=== PATIENT | male | born 1955 | race Caucasian/White ===

== ENCOUNTER 2020-05-16 19:38 | Inpatient (IN) | payer SELFPAY ==
[~2020-05-16] VITALS: Ht 188 cm; Wt 104.0 kg
[2020-05-16] MEDS ORDERED: dilTIAZem DRIP PRE-MIX 125 ML IV SCH (20:00)
[2020-05-16 20:05] LABS: BASOPHILS % (AUTO) 1 % (0-10); EOSINOPHILS % (AUTO) 0 % (0-10); HEMATOCRIT 50 % (40-54); HEMOGLOBIN 17.8 g/dL (13.3-17.7); LYMPHOCYTES # (AUTO) 1.7 10^3/uL (1.0-4.0); LYMPHOCYTES % (AUTO) 29 % (12-44); MEAN CORPUSCULAR HEMOGLOBIN 33 pg (25-34); MEAN CORPUSCULAR HGB CONC 36 g/dL (32-36); MEAN CORPUSCULAR VOLUME 92 fL (80-99); MEAN PLATELET VOLUME 9.9 fL (9.0-12.2); MONOCYTES # (AUTO) 1.9 10^3/uL (0.0-1.0); MONOCYTES % (AUTO) 33 % (0-12); NEUTROPHILS # (AUTO) 2.2 10^3/uL (1.8-7.8); NEUTROPHILS % (AUTO) 37 % (42-75); PLATELET COUNT 203 10^3/uL (130-400)
[2020-05-16 20:19] LABS: ALANINE AMINOTRANSFERASE 65 U/L (0-55); ALBUMIN 4.4 GM/DL (3.2-4.5); ALKALINE PHOSPHATASE 52 U/L (40-136); BILIRUBIN,TOTAL 0.7 MG/DL (0.1-1.0); BUN/CREATININE RATIO 14; CALCIUM 8.8 MG/DL (8.5-10.1); CARBON DIOXIDE 18 MMOL/L (21-32); CHLORIDE 104 MMOL/L (98-107); CREATININE SERUM 0.99 MG/DL (0.60-1.30); GFR ESTIMATED > 60; GLUCOSE 118 MG/DL (70-105); MAGNESIUM 2.3 MG/DL (1.6-2.4); SODIUM 136 MMOL/L (135-145); TOTAL PROTEIN 8.2 GM/DL (6.4-8.2)
[2020-05-16 20:24] LABS: PROTHROMBIN TIME PATIENT 13.3 SEC (12.2-14.7)
[2020-05-16 20:28] LABS: LYMPHOCYTES % (MANUAL) 24 %; MONOCYTES % (MANUAL) 31 %; NEUTROPHILS % (MANUAL) 45 %; RBC MORPH NORMAL
--- NOTE | 2020-05-16 20:37 | Diagnostic Imaging Report ---
EXAMINATION: Chest radiograph, portable AP view. DATE: 05/16/2020 8:27 PM INDICATION: 65-year-old male, chest pain. COMPARISON: None. FINDINGS: Heart size and mediastinal contours are unremarkable. There is no identified pneumothorax. Streaky opacities in both lung bases. IMPRESSION: Streaky opacities in both lung bases which may relate to atelectasis and/or infiltrate. Dictated by: Dictated on workstation # [id number]
[2020-05-16 20:40] LABS: TSH (THYROID ANALYZER) 1.17 UIU/ML (0.35-4.94)
[2020-05-16 20:46] LABS: AMPHETAMINE SCREEN, URINE NEGATIVE (NEGATIVE); BARBITURATE SCREEN URINE NEGATIVE (NEGATIVE); BENZODIAZEPINES SCREEN URINE NEGATIVE (NEGATIVE); CANNABINOID SCREEN, URINE NEGATIVE (NEGATIVE); COCAINE SCREEN URINE NEGATIVE (NEGATIVE); METHADONE STAT NEGATIVE (NEGATIVE); METHAMPHETAMINE SCREEN URINE S NEGATIVE (NEGATIVE); OPIATE SCREEN URINE NEGATIVE (NEGATIVE); OXYCODONE STAT NEGATIVE (NEGATIVE); PROPOXYPHENE STAT NEGATIVE (NEGATIVE); TRICYCLIC ANTIDEPRESSANTS SCRE NEGATIVE (NEGATIVE)
--- NOTE | 2020-05-16 22:09 | ED Cardiac General ---
History of Present Illness General Chief Complaint: Cardiac/General Problems Stated Complaint: POSS HEART ISSUES / CHEST TIGHTNESS Nursing Triage Note: Pt ambulatory into ER with complaint of heart racing or as he describes it as a fast murmur. Pt also says that his blood pressure is probably high. Pt states that he was gonna go to the clinic but they never find anything wrong with him so he came here. Pt denies chest pain, shortness of breath, n/v/d. Source: patient Exam Limitations: no limitations History of Present Illness Date Seen by Provider: May 16, 2020 Time Seen by Provider: 19:55 Initial Comments This 65-year-old gentleman presents to the emergency room with complaints of palpitations. He denies any chest pain or shortness of breath. He has had similar episodes in the past that were self-limited and sometimes lasted up to several hours. He appears to be in atrial fibrillation or atrial flutter with RVR on the monitor, but he denies any diagnosed history of arrhythmias. He does not have a primary care provider. He seems to be perseverating about a variety of issues including the possibility of dietary impacts causing his condition. It is difficult to keep him focused on the topic at hand. Patient has some bruising and an abrasion around his navel where he also has an umbilical hernia. He reports this occurred when a almond grinder broke and struck him in the belly 2 or 3 days ago. Allergies and Home Medications Allergies Coded Allergies: No Known Drug Allergies (Unverified , 05/16/20) Patient Home Medication List Home Medication List Reviewed: Yes Review of Systems Review of Systems Constitutional: no symptoms reported EENTM: No Symptoms Reported Respiratory: No Symptoms Reported Cardiovascular: See HPI Gastrointestinal: No Symptoms Reported Genitourinary: No Symptoms Reported Musculoskeletal: no symptoms reported Skin: see HPI, other (Bruising and abrasion around the navel) Psychiatric/Neurological: No Symptoms Reported Endocrine: No Symptoms Reported Past Icaec[facility]-Pnw[facility]x Hx Past Med/Social Hx: Reviewed Nursing Past Med/Soc Hx Patient Social History Recent Infectious Disease Expo: No Recent Hopitalizations: No Seasonal Allergies Seasonal Allergies: No Past Medical History Surgeries: No Respiratory: No Cardiac: No Neurological: No Genitourinary: No Gastrointestinal: Yes (Umbilical hernia) Musculoskeletal: No Endocrine: No HEENT: Yes (Strabismus) Glaucoma Cancer: No Psychosocial: No Integumentary: No Blood Disorders: No Adverse Reaction/Blood Tranf: No Physical Exam Vital Signs Vital Signs - First Documented 05/16/20 05/16/20 19:44 20:02 Temp 36.8 Pulse 126 Resp 20 B/P (MAP) 163/151 (155) Pulse Ox 95 O2 Delivery Nasal Cannula O2 Flow Rate 2.00 Capillary Refill : Less Than 3 Seconds Height, Weight, BMI Height: '" Weight: lbs. oz. kg; 28.00 BMI Method: General Appearance: No Apparent Distress, WD/WN HEENT: PERRL/EOMI, Normal ENT Inspection Neck: Normal Inspection; No JVD Respiratory: Lungs Clear, Normal Breath Sounds, No Accessory Muscle Use, No Respiratory Distress Cardiovascular: No Edema, No Murmur, Irregularly Irregular Gastrointestinal: Normal Bowel Sounds, Non Tender, Soft, Other (Small umbilical hernia with nearby ecchymosis and abrasion) Extremity: Normal Inspection, No Pedal Edema Neurologic/Psychiatric: Alert, Oriented x3, No Motor/Sensory Deficits, Normal Mood/Affect, network engineer II-XII Norm as Tested, Other (Various perseverations, paranoias, and scattered thoughts) Skin: Normal Color, Warm/Dry Progress/Results/Core Measures Results/Orders Lab Results Laboratory Tests Test 05/16/20 19:50 05/16/20 20:28 Range/Units White Blood Count 6.0 4.3-11.0 10^3/uL Red Blood Count 5.45 4.30-5.52 10^6/uL Hemoglobin 17.8 H 13.3-17.7 g/dL Hematocrit 50 40-54 % Mean Corpuscular Volume 92 80-99 fL Mean Corpuscular Hemoglobin 33 25-34 pg Mean Corpuscular Hemoglobin Concent 36 32-36 g/dL Red Cell Distribution Width 11.9 10.0-14.5 % Platelet Count 203 130-400 10^3/uL Mean Platelet Volume 9.9 9.0-12.2 fL Immature Granulocyte % (Auto) 0 % Neutrophils (%) (Auto) 37 L 42-75 % Lymphocytes (%) (Auto) 29 12-44 % Monocytes (%) (Auto) 33 H 0-12 % Eosinophils (%) (Auto) 0 0-10 % Basophils (%) (Auto) 1 0-10 % Neutrophils # (Auto) 2.2 1.8-7.8 10^3/uL Lymphocytes # (Auto) 1.7 1.0-4.0 10^3/uL Monocytes # (Auto) 1.9 H 0.0-1.0 10^3/uL Eosinophils # (Auto) 0.0 0.0-0.3 10^3/uL Basophils # (Auto) 0.0 0.0-0.1 10^3/uL Immature Granulocyte # (Auto) 0.0 0.0-0.1 10^3/uL Neutrophils % (Manual) 45 % Lymphocytes % (Manual) 24 % Monocytes % (Manual) 31 % Blood Morphology Comment NORMAL Prothrombin Time 13.3 12.2-14.7 SEC INR Comment 1.0 0.8-1.4 Activated Partial Thromboplast Time 30 24-35 SEC D-Dimer 0.28 0.00-0.49 UG/ML Sodium Level 136 135-145 MMOL/L Potassium Level 4.0 3.6-5.0 MMOL/L Chloride Level 104 98-107 MMOL/L Carbon Dioxide Level 18 L 21-32 MMOL/L Anion Gap 14 5-14 MMOL/L Blood Urea Nitrogen 14 7-18 MG/DL Creatinine 0.99 0.60-1.30 MG/DL Estimat Glomerular Filtration Rate > 60 BUN/Creatinine Ratio 14 Glucose Level 118 H 70-105 MG/DL Calcium Level 8.8 8.5-10.1 MG/DL Corrected Calcium 8.5 8.5-10.1 MG/DL Magnesium Level 2.3 1.6-2.4 MG/DL Total Bilirubin 0.7 0.1-1.0 MG/DL Aspartate Amino Transf (AST/SGOT) 54 H 5-34 U/L Alanine Aminotransferase (ALT/SGPT) 65 H 0-55 U/L Alkaline Phosphatase 52 40-136 U/L Myoglobin 86.2 10.0-92.0 NG/ML Troponin I < 0.028 <0.028 NG/ML C-Reactive Protein High Sensitivity 1.41 H 0.00-0.50 MG/DL Total Protein 8.2 6.4-8.2 GM/DL Albumin 4.4 3.2-4.5 GM/DL TSH [place] Testing 1.17 0.35-4.94 UIU/ML Serum Alcohol < 10 <10 MG/DL Urine Opiates Screen NEGATIVE NEGATIVE Urine Oxycodone Screen NEGATIVE NEGATIVE Urine Methadone Screen NEGATIVE NEGATIVE Urine Propoxyphene Screen NEGATIVE NEGATIVE Urine Barbiturates Screen NEGATIVE NEGATIVE Ur Tricyclic Antidepressants Screen NEGATIVE NEGATIVE Urine Phencyclidine Screen NEGATIVE NEGATIVE Urine Amphetamines Screen NEGATIVE NEGATIVE Urine Methamphetamines Screen NEGATIVE NEGATIVE Urine Benzodiazepines Screen NEGATIVE NEGATIVE Urine Cocaine Screen NEGATIVE NEGATIVE Urine Cannabinoids Screen NEGATIVE NEGATIVE My Orders Orders - JIE PINEDO MD Cbc With Automated Diff (05/16/20 19:57) Magnesium (05/16/20 19:57) Chest 1 View, Ap/Pa Only (05/16/20 19:57) Ekg Tracing (05/16/20 19:57) Comprehensive Metabolic Panel (05/16/20:57) Myoglobin Serum (05/16/20:57) Protime With Inr (05/16/20:57) Partial Thromboplastin Time (05/16/20 19:57) O2 (05/16/20 19:57) Monitor-Rhythm Ecg Trace Only (05/16/20 19:57) Lipid Panel (05/17/20 06:00) Ed Iv/Invasive Line Start (05/16/20 19:57) Troponin I (05/16/20 19:57) Thyroid Analyzer (05/16/20 19:57) Diltiazem Injection (Cardizem Injection) (05/16/20 20:00) Diltiazem Drip Pre-Mix (Cardizem Drip Pr (05/16/20 20:00) Alcohol (05/16/20 19:59) Drug Screen Stat (Urine) (05/16/20 19:59) Manual Differential (05/16/20 19:50) Hs C Reactive Protein (05/16/20 21:40) Apixaban Tablet (Eliquis Tablet) (05/16/20 22:15) Covid 19 Inhouse Test (05/16/20 22:02) Medications Given in ED Current Medications Medications Dose Ordered Sig/Leopoldo Route Start Time Stop Time Status Last Admin Dose Admin Diltiazem HCl 10 mg ONCE ONCE IVP 05/16/20 20:00 05/16/20 20:01 DC 05/16/20 20:10 10 MG Vital Signs/I&O 05/16/20 05/16/20 19:44 20:02 Temp 36.8 Pulse 126 Resp 20 B/P (MAP) 163/151 (155) Pulse Ox 95 94 O2 Delivery Nasal Cannula O2 Flow Rate 2.00 Blood Pressure Mean: 155 Progress Progress Note : Progress Note Patient was found to have A. fib Or atrial flutter with RVR. He was started on a Cardizem drip which did drop his heart rate down into the 90s.Atelectasis vers us basilar infiltrate was noted on chest x-ray and nursing staff noted he did have some mild oxygen desaturations with exertion. Patient later stated that he had had a headache and some cold symptoms 2 days ago. Rapid Covid test was performed and returned positive for COVID-19. Dexamethasone was administered. Initial ECG Impression Date: May 16, 2020 Initial ECG Impression Time: 19:48 Initial ECG Rate: 131 Comment Probable atrial flutter with RVR. No ST elevation or depression to suggest ischemia. Diagnostic Imaging Diagonstic Imaging: Xray Plain Films/CT/US/NM/MRI: chest Comments Chest x-ray viewed by me and report reviewed. See report below: NAME: HARSH MITCHELL [facility] REC#: [id number] PT STATUS: REG ER : 1955 PHYSICIAN: JIE PINEDO MD ADMIT DATE: 05/16/20/ER Signed Date of Exam:05/16/20 CHEST 1 VIEW, AP/PA ONLY EXAMINATION: Chest radiograph, portable AP view. DATE: 05/16/2020 8:27 PM INDICATION: 65-year-old male, chest pain. COMPARISON: None. FINDINGS: Heart size and mediastinal contours are unremarkable. There is no identified pneumothorax. Streaky opacities in both lung bases. IMPRESSION: Streaky opacities in both lung bases which may relate to atelectasis and/or infiltrate. Dictated by: Dictated on workstation # [id number] Dict: 05/16/202029 Trans: 05/16/202201 [facility] [id number] Interpreted by: KEN BURCIAGA MD Electronically signed by: KEN BURCIAGA MD 05/16/202201 Departure Communication (Admissions) Time/Spoke to Admitting Phy: 22:00 Dr. Grant Time/Spoke to Consulting Phy: 21:50 Dr. Shea Impression Primary Impression: Atrial flutter with rapid ventricular response Additional Impression: COVID-19 Disposition: 09 ADMITTED INPATIENT Condition: Improved Admissions Decision to Admit Reason: Admit from ER (General) Decision to Admit/Date: May 16, 2020 Time/Decision to Admit Time: 19:50 Departure-Patient Inst. Referrals: NO,LOCAL PHYSICIAN (PCP/Family) Primary Care Physician JIE PINEDO MD May 16, 2020 22:09
[2020-05-16] MEDS ORDERED: APIXABAN 5 MG (ELIQUIS) TABLET PO ONE (22:15)
[2020-05-17 00:42] VITALS: BP 148/109
[2020-05-17] MEDS ORDERED: CATHETER FLUSH 10 ML SYR IV PRN (01:15)
[2020-05-17] MEDS: dilTIAZem DRIP PRE-MIX 125 ML IV SCH ×2 (01:20→04:54)
[2020-05-17 05:08] LABS: BASOPHILS % (AUTO) 0 % (0-10); EOSINOPHILS % (AUTO) 0 % (0-10); HEMATOCRIT 55 % (40-54); HEMOGLOBIN 19.5 g/dL (13.3-17.7); LYMPHOCYTES # (AUTO) 0.7 10^3/uL (1.0-4.0); LYMPHOCYTES % (AUTO) 13 % (12-44); MEAN CORPUSCULAR HEMOGLOBIN 32 pg (25-34); MEAN CORPUSCULAR HGB CONC 35 g/dL (32-36); MEAN CORPUSCULAR VOLUME 92 fL (80-99); MEAN PLATELET VOLUME 10.2 fL (9.0-12.2); MONOCYTES # (AUTO) 0.5 10^3/uL (0.0-1.0); MONOCYTES % (AUTO) 8 % (0-12); NEUTROPHILS # (AUTO) 4.6 10^3/uL (1.8-7.8); NEUTROPHILS % (AUTO) 79 % (42-75); PLATELET COUNT 226 10^3/uL (130-400); WHITE BLOOD COUNT 5.8 10^3/uL (4.3-11.0)
[2020-05-17 05:34] LABS: BUN/CREATININE RATIO 12; CALCIUM 9.4 MG/DL (8.5-10.1); CARBON DIOXIDE 18 MMOL/L (21-32); CHLORIDE 103 MMOL/L (98-107); CREATININE SERUM 1.09 MG/DL (0.60-1.30); GFR ESTIMATED > 60; GLUCOSE 195 MG/DL (70-105); MAGNESIUM 2.2 MG/DL (1.6-2.4); PHOSPHORUS 2.2 MG/DL (2.3-4.7); POTASSIUM 3.7 MMOL/L (3.6-5.0); SODIUM 136 MMOL/L (135-145)
[2020-05-17 05:35] LABS: CHOLESTEROL 162 MG/DL (< 200); HDL CHOLESTEROL 43 MG/DL (40-60); TRIGLYCERIDES 93 MG/DL (<150); VLDL CHOLESTEROL 19 MG/DL (5-40)
[2020-05-17] MEDS ORDERED: KCL 20 MEQ TAB (K-DUR) PO SCH (06:00)
[2020-05-17] MEDS ORDERED: CATHETER FLUSH 10 ML SYR IV SCH (06:00)
[2020-05-17] MEDS ORDERED: POTASSIUM CL 10MEQ/50ML IVPB 50 ML IV SCH (06:00)
[2020-05-17] MEDS ORDERED: MAGNESIUM 1 GM/100 ML IVPB 100 ML IV SCH (06:00)
[2020-05-17] MEDS ORDERED: APIXABAN 5 MG (ELIQUIS) TABLET PO SCH (09:00)
[2020-05-17] MEDS ORDERED: APIX5TAB PO (10:43)
[2020-05-17] MEDS ORDERED: DILT240C91 PO (10:43)
--- NOTE | 2020-05-17 10:50 | Discharge Summary ---
Discharge Summary Hospital Course Was the Problem List Reviewed?: Yes Problems/Dx: (1) Atrial flutter with rapid ventricular response Status: Acute (2) COVID-19 Status: Acute Hospital Course Date of Admission: May 16, 2020 at 22:05 Admission Diagnosis : Atrial fibrillation with rapid ventricular response Family Physician/Provider: No,Local Physician Date of Discharge: 05/17/20 Discharge Diagnosis: Atrial fibrillation with rapid ventricular response Hospital Course: Zain Mahan is a 65-year-old male who presented with palpitations and was admitted with atrial fibrillation with rapid ventricular response. He was started on IV Cardizem and was able to be transitioned to oral Cardizem once his rates were well controlled. He was started on Eliquis for stroke prophylaxis. His course was complicated by COVID-19. He was relatively asymptomatic from this. His symptoms started on Thursday, 05/14 and he will need to isolate for 10 days. He needs to establish care with a primary care physician and plans to go to the [facility]. He also needs to follow-up with cardiology. He was discharged home in stable condition. Labs and Pending Lab Test: Laboratory Tests 05/16/20 19:50: White Blood Count 6.0, Red Blood Count 5.45, Hemoglobin 17.8H, Hematocrit 50, Mean Corpuscular Volume 92, Mean Corpuscular Hemoglobin 33, Mean Corpuscular Hemoglobin Concent 36, Red Cell Distribution Width 11.9, Platelet Count 203, Mean Platelet Volume 9.9, Immature Granulocyte % (Auto) 0, Neutrophils (%) (Auto) 37L, Lymphocytes (%) (Auto) 29, Monocytes (%) (Auto) 33H, Eosinophils (%) (Auto) 0, Basophils (%) (Auto) 1, Neutrophils # (Auto) 2.2, Lymphocytes # (Auto) 1.7, Monocytes # (Auto) 1.9H, Eosinophils # (Auto) 0.0, Basophils # (Auto) 0.0, Immature Granulocyte # (Auto) 0.0, Neutrophils % (Manual) 45, Lymphocytes % (Manual) 24, Monocytes % (Manual) 31, Blood Morphology Comment NORMAL, Prothrombin Time 13.3, INR Comment 1.0, Activated Partial Thromboplast Time 30, D-Dimer 0.28, Sodium Level 136, Potassium Level 4.0, Chloride Level 104, Carbon Dioxide Level 18L, Anion Gap 14, Blood Urea Nitrogen 14, Creatinine 0.99, Estimat Glomerular Filtration Rate > 60, BUN/Creatinine Ratio 14, Glucose Level 118H, Calcium Level 8.8, Corrected Calcium 8.5, Magnesium Level 2.3, Total Bilirubin 0.7, Aspartate Amino Transf (AST/SGOT) 54H, Alanine Aminotransferase (ALT/SGPT) 65H, Alkaline Phosphatase 52, Myoglobin 86.2, Troponin I < 0.028, C- Reactive Protein High Sensitivity 1.41H, Total Protein 8.2, Albumin 4.4, TSH [place] Testing 1.17, Serum Alcohol < 10 05/16/20 20:28: Urine Opiates Screen NEGATIVE, Urine Oxycodone Screen NEGATIVE, Urine Methadone Screen NEGATIVE, Urine Propoxyphene Screen NEGATIVE, Urine Barbiturates Screen NEGATIVE, Ur Tricyclic Antidepressants Screen NEGATIVE, Urine Phencyclidine Screen NEGATIVE, Urine Amphetamines Screen NEGATIVE, Urine Methamphetamines Screen NEGATIVE, Urine Benzodiazepines Screen NEGATIVE, Urine Cocaine Screen NEGATIVE, Urine Cannabinoids Screen NEGATIVE 05/16/20 22:15: Coronavirus 2019 (LETICIA) PositiveH 05/17/20 04:50: White Blood Count 5.8, Red Blood Count 6.03H, Hemoglobin 19.5H, Hematocrit 55H, Mean Corpuscular Volume 92, Mean Corpuscular Hemoglobin 32, Mean Corpuscular Hemoglobin Concent 35, Red Cell Distribution Width 11.8, Platelet Count 226, Mean Platelet Volume 10.2, Immature Granulocyte % (Auto) 0, Neutrophils (%) (Auto) 79H, Lymphocytes (%) (Auto) 13, Monocytes (%) (Auto) 8, Eosinophils (%) (Auto) 0, Basophils (%) (Auto) 0, Neutrophils # (Auto) 4.6, Lymphocytes # (Auto) 0.7L, Monocytes # (Auto) 0.5, Eosinophils # (Auto) 0.0, Basophils # (Auto) 0.0, Immature Granulocyte # (Auto) 0.0, Sodium Level 136, Potassium Level 3.7, Chloride Level 103, Carbon Dioxide Level 18L, Anion Gap 15H, Blood Urea Nitrogen 13, Creatinine 1.09, Estimat Glomerular Filtration Rate > 60, BUN/Creatinine Ratio 12, Glucose Level 195H, Calcium Level 9.4, Magnesium Level 2.2, Phosphorus Level 2.2L, Triglycerides Level 93, Cholesterol Level 162, LDL Cholesterol Direc t 111, VLDL Cholesterol 19, HDL Cholesterol 43 05/17/20 04:52: Mean Blood Glucose [Pending], Hemoglobin A1c [Pending] Home Meds Active Assessment/Pt Instructions Take medications as prescribed. You are being started on Cardizem and Eliquis for atrial fibrillation. You were also diagnosed with COVID-19. You will need to isolate for 6 more days. You need to establish care with a primary care physician. You should follow up with cardiology. Return with worsening palpitations, chest pain, shortness of breath, or if you feel like you are getting worse. Discharge Planning: <30 minutes discharge planning Discharge Instructions Discharge Diet: No Restrictions Activity as Tolerated: Yes Discharge Physical Examination Vital Signs Vital Signs Date Time Temp Pulse Resp B/P (MAP) Pulse Ox O2 Delivery O2 Flow Rate FiO2 05/17/20 10:00 154/98 (116) 97 Room Air 05/17/20 09:00 77 23 05/17/20 08:59 0.50 05/17/20 08:19 37.6 General Appearance: No Apparent Distress, Obese HEENT: PERRL/EOMI, Pharynx Normal Respiratory: Lungs Clear, Normal Breath Sounds, No Respiratory Distress Cardiovascular: No Edema, No Murmur, Irregularly Irregular Gastrointestinal: Normal Bowel Sounds, Non Tender, Soft Extremity: Normal Inspection, Non Tender, No Pedal Edema Skin: Normal Color, Warm/Dry Neurologic/Psychiatric: Alert, Oriented x3, No Motor/Sensory Deficits Allergies: Coded Allergies: No Known Drug Allergies (Unverified , 05/16/20) Copy Copies To 1: [facility] [place] Date of Admission May 16, 2020 at 22:05 Date of Discharge Discharge Date: May 17, 2020 Discharge Time: 10:46 Admission Diagnosis Atrial fibrillation with rapid ventricular response Consults/Procedures Consulations Cardiology Discharge Diagnosis (1) Atrial flutter with rapid ventricular response Status: Acute (2) COVID-19 Status: Acute MELIZA FONSECA MD May 17, 2020 10:50
--- NOTE | 2020-05-17 17:27 | Consultation-Cardiology ---
HPI-Cardiology Cardiology Consultation: Date of Consultation 05/17/20 Time Seen by a Provider: 08:30 Date of Admission Attending Physician Agustina Grant DO Admitting Physician No,Local Physician Consulting Physician ANABELL PIMENTEL MD, MA, FACP, FACC, FSCAI, CCDS HPI: Chief Complaint: CC: Palpitations HPI 65 yo man admitted to Dr Fonseca service on 05-16-20 with palpitations. Found to have A Fl with RVR. We were asked to see him in cardiac consult. He does not report any cp or syncope or shortness of breath. Has had intermittent feeling of palpitations for several months. Denies fever or chills. Denies sore throat or runny nose or malaise. Found to be COVID positive at the time of this admission. Notes many medication intolerances but unable to name any specific meds. Drifts away from the questions during the interview. Wants to go home today. Does not wish to stay in the hospital. Review of Systems-Cardiology Review of Systems Constitutional: malaise, tiredness; No weight loss, No weight gain Eyes: No vision change Ears/Nose/Throat: No ear discharge, No nasal drainage, No recent hearing loss Respiratory: As described under HPI Cardiovascular: As described under HPI Gastrointestinal: No diarrhea, No nausea, No vomiting Genitourinary: No dysuria, No hematuria, No urine frequency changes Musculoskeletal: No back pain, No joint pain Skin: No rash on exposed areas, No ulcerations on exposed areas Psychiatric/Neurological: No seizure, No focal weakness, No syncope Hematologic: No bleeding abnormalities KEN-Wcpdhj-Dpldif Hx Patient Social History Smoking Status: Never a Smoker Past Medical History PMH As described under Assessment. Family Medical History Family Medical History: he does not report fam h/o early CAD Allergies and Home Medications Allergies Coded Allergies: No Known Drug Allergies (Unverified , 05/16/20) Home Medications Apixaban 5 Mg Tablet, 5 MG PO BID Prescribed by: MELIZA FONSECA on 05/17/20 1043 Diltiazem HCl 240 Mg Cap.er.24h, 240 MG PO DAILY Prescribed by: MELIZA FONSECA on 05/17/20 1043 Patient Home Medication List Home Medication List Reviewed: Yes Physical Exam-Cardiology Physical Exam Vital Signs/I&O 05/17/20 05/17/20 05/17/20 05/17/20 06:00 06:47 07:00 08:00 Pulse 82 76 67 Resp 15 14 B/P (MAP) 127/80 (96) 126/93 (104) Pulse Ox 95 96 96 O2 Delivery Nasal Cannula Nasal Cannula Nasal Cannula O2 Flow Rate 2.00 2.00 2.00 05/17/20 05/17/20 05/17/20 05/17/20 08:00 08:19 08:59 09:00 Temp 37.6 Pulse 48 77 Resp 10 23 B/P (MAP) 138/90 (106) 166/94 (118) Pulse Ox 96 96 97 O2 Delivery Nasal Cannula Nasal Cannula Room Air O2 Flow Rate 2.00 0.50 05/17/20 05/17/20 05/17/20 05/17/20 09:00 10:00 11:00 12:00 Pulse 92 Resp 18 B/P (MAP) 154/98 (116) 161/118 (132) Pulse Ox 97 96 96 O2 Delivery Room Air Room Air Room Air Room Air 05/17/20 05/17/20 12:00 12:34 Pulse 99 99 Resp 15 B/P (MAP) 152/117 (129) Pulse Ox 96 O2 Delivery Room Air Capillary Refill : Less Than 3 Seconds Constitutional: AAO x 3, well-developed, other HEENT: EOMI, hearing is well preserved; No xanthelasmas are seen Neck: carotid pulses are 2 + bilaterally, with good upstrokes Respiratory: No accessory muscle use; other (good bilateral air entry) Cardiovascular: irregularly irregular, S1 and S2 Gastrointestinal: No tender; soft; No guarding, No rebound; audible bowel sounds Extremities: No clubbing, No cyanosis, No significant edema Neurologic/Psychiatric: oriented x 3, other (moves all limbs equally) Skin: warm/dry; No cool, No rash on exposed areas, No ulcerations on exposed areas Data Review Labs Laboratory Tests 05/16/20 19:50: White Blood Count 6.0, Red Blood Count 5.45, Hemoglobin 17.8H, Hematocrit 50, Mean Corpuscular Volume 92, Mean Corpuscular Hemoglobin 33, Mean Corpuscular He moglobin Concent 36, Red Cell Distribution Width 11.9, Platelet Count 203, Mean Platelet Volume 9.9, Immature Granulocyte % (Auto) 0, Neutrophils (%) (Auto) 37L , Lymphocytes (%) (Auto) 29, Monocytes (%) (Auto) 33H, Eosinophils (%) (Auto) 0, Basophils (%) (Auto) 1, Neutrophils # (Auto) 2.2, Lymphocytes # (Auto) 1.7, Monocytes # (Auto) 1.9H, Eosinophils # (Auto) 0.0, Basophils # (Auto) 0.0, Immature Granulocyte # (Auto) 0.0, Neutrophils % (Manual) 45, Lymphocytes % (Manual) 24, Monocytes % (Manual) 31, Blood Morphology Comment NORMAL, Prothrombin Time 13.3, INR Comment 1.0, Activated Partial Thromboplast Time 30, D-Dimer 0.28, Sodium Level 136, Potassium Level 4.0, Chloride Level 104, Carbon Dioxide Level 18L, Anion Gap 14, Blood Urea Nitrogen 14, Creatinine 0.99, Estimat Glomerular Filtration Rate > 60, BUN/Creatinine Ratio 14, Glucose Level 118H, Calcium Level 8.8, Corrected Calcium 8.5, Magnesium Level 2.3, Total Bilirubin 0.7, Aspartate Amino Transf (AST/SGOT) 54H, Alanine Aminotransferase (ALT/SGPT) 65H, Alkaline Phosphatase 52, Myoglobin 86.2, Troponin I < 0.028, C- Reactive Protein High Sensitivity 1.41H, Total Protein 8.2, Albumin 4.4, TSH [place] Testing 1.17, Serum Alcohol < 10 05/16/20 20:28: Urine Opiates Screen NEGATIVE, Urine Oxycodone Screen NEGATIVE, Urine Methadone Screen NEGATIVE, Urine Propoxyphene Screen NEGATIVE, Urine Barbiturates Screen NEGATIVE, Ur Tricyclic Antidepressants Screen NEGATIVE, Urine Phencyclidine Screen NEGATIVE, Urine Amphetamines Screen NEGATIVE, Urine Methamphetamines Screen NEGATIVE, Urine Benzodiazepines Screen NEGATIVE, Urine Cocaine Screen NEGATIVE, Urine Cannabinoids Screen NEGATIVE 05/16/20 22:15: Coronavirus 2019 (LETICIA) PositiveH 05/17/20 04:50: White Blood Count 5.8, Red Blood Count 6.03H, Hemoglobin 19.5H, Hematocrit 55H, Mean Corpuscular Volume 92, Mean Corpuscular Hemoglobin 32, Mean Corpuscular Hemoglobin Concent 35, Red Cell Distribution Width 11.8, Platelet Count 226, Mean Platelet Volume 10.2, Immature Granulocyte % (Auto) 0, Neutrophils (%) (Auto) 79H, Lymphocytes (%) (Auto) 13, Monocytes (%) (Auto) 8, Eosinophils (%) (Auto) 0, Basophils (%) (Auto) 0, Neutrophils # (Auto) 4.6, Lymphocytes # (Auto) 0.7L, Monocytes # (Auto) 0.5, Eosinophils # (Auto) 0.0, Basophils # (Auto) 0.0, Immature Granulocyte # (Auto) 0.0, Sodium Level 136, Potassium Level 3.7, Chloride Level 103, Carbon Dioxide Level 18L, Anion Gap 15H, Blood Urea Nitrogen 13, Creatinine 1.09, Estimat Glomerular Filtration Rate > 60, BUN/Creatinine Ratio 12, Glucose Level 195H, Calcium Level 9.4, Magnesium Level 2.2, Phosphorus Level 2.2L, Triglycerides Level 93, Cholesterol Level 162, LDL Cholesterol Direct 111, VLDL Cholesterol 19, HDL Cholesterol 43 05/17/20 04:52: A/P-Cardiology Assessment/Admission Diagnosis Atrial fib/flutter with good rate control on iv diltiazem COVID positive status Discussion and Recomendations * Change diltiazem to long-acting oral dilt (as tolerated this med well during this hospitalization) * Eliquis for stroke prophylaxis (has tolerated this med well during this hospitalization) * I explained the potential etiolgies and treatment options for A Fib. He seemed to understand, but was interested mostly in leaving [facility] * We discussed the importance of stroke prophylaxis in A Fib. Seems to understand. He said he wishes to avoid stroke for at least 2 weeks (he didn't explain the rationale behind this statement) * Dr Fonseca is managing pt's COVID-19 * If the pt is to leave today, we have advised compliance with meds and close outpt f/u ANABELL PIMENTEL MD FACP [facility] CCDS May 17, 2020 17:27
== END 2020-05-17 12:45 | disposition home or self-care (01) | DRG 178 ==
LOC: EDUNIT# 19:38 → ER 19:40 → ICU 22:05
PROVIDERS: ADMIT Internal Medicine; ATTEND Internal Medicine
DX: U07.1 COVID-19 (principal); I48.92 Unspecified atrial flutter; I48.91 Unspecified atrial fibrillation; Z79.01 Long term (current) use of anticoagulants; S30.1XXD Contusion of abdominal wall, subsequent encounter; K42.9 Umbilical hernia without obstruction or gangrene; H50.9 Unspecified strabismus; H40.9 Unspecified glaucoma; W29.8XXD Contact with other powered hand tools and household machinery, subsequent encounter
CPT/HCPCS: 36415; 71045; 80048; 80053; 80061; 80306; 80320; 83036; 83735; 83874; 84100; 84443; 84484; 85007; 85025; 85027; 85379; 85610; 85730; 86141; 87081; 87635; 93005; 93041

== ENCOUNTER 2020-05-19 19:03 | Emergency (ER) | payer SELFPAY ==
[~2020-05-19] VITALS: Ht 188 cm; Wt 102.1 kg
[~2020-05-19 19:03] MED LIST: APIX5TAB PO; DILT240C91 PO
[2020-05-19] MEDS ORDERED: NITROGLYCERIN 0.4 MG SL TABS BTL 25'S SL PRN (19:15)
[2020-05-19] MEDS ORDERED: ASPIRIN 81 MG CHEW (CHILDREN'S ASA) PO ONE (19:15)
[2020-05-19] MEDS ORDERED: dilTIAZem DRIP PRE-MIX 125 ML IV ONE (19:23)
[2020-05-19] MEDS ORDERED: dilTIAZem DRIP PRE-MIX 125 ML IV SCH (19:30)
[2020-05-19 19:31] VITALS: BP 161/110
--- NOTE | 2020-05-19 19:35 | ED Cardiac General ---
History of Present Illness General Chief Complaint: Cardiac/General Problems Stated Complaint: COVID + / CHEST PAIN Source: patient (LIMITED HISTORIAN), old records History of Present Illness Date Seen by Provider: May 19, 2020 Time Seen by Provider: 19:10 Initial Comments PT ARRIVES VIA POV FROM HOME C/O FLUTTERING IN CHEST --NOTICED IT AROUND 1700 OR 1800 TONIGHT. PT WAS ADMITTED 05/16/20 FOR NEW DX ATRIAL FIBRILLATION WITH RVR. PT HAD BEEN HAVING SYMPTOMS OF FLUTTERING IN CHEST OFF AND ON FOR A YEAR. PT DISMISSED WITH CARDIZEM AND ARIEL PT WAS ALSO DIAGNOSED WITH COVID-19 INFECTION AT TIME OF ADMIT. STATES HE HAS SLEPT MOST OF THE DAY NO CHEST PAIN NO SHORTNESS OF BREATH NO SWEATS--HAS NOT CHECKED TEMP AT ANY TIME NO COUGH NO SWELLING IN LEGS/ FEET OR PAIN IN CALVES NO NAUSEA/VOMITING/DIARRHEA NO DIZZINESS OR SYNCOPE PCP: NONE Allergies and Home Medications Allergies Coded Allergies: No Known Drug Allergies (Unverified , 05/16/20) Home Medications Apixaban 5 Mg Tablet, 5 MG PO BID Prescribed by: MELIZA FONSECA on 05/17/20 1043 Diltiazem HCl 240 Mg Cap.er.24h, 240 MG PO DAILY Prescribed by: MELIZA FONSECA on 05/17/20 1043 Diltiazem HCl 360 Mg Cap.er.24h, 360 MG PO DAILY Prescribed by: KALI DASH on 05/19/206 Patient Home Medication List Home Medication List Reviewed: Yes Review of Systems Review of Systems Constitutional: no symptoms reported EENTM: No Symptoms Reported Respiratory: No Symptoms Reported Cardiovascular: See HPI; Denies Chest Pain, Denies Edema; Irregular Heart Rate; Denies Lightheadedness; Palpitations; Denies Syncope Gastrointestinal: No Symptoms Reported Genitourinary: No Symptoms Reported Musculoskeletal: no symptoms reported Skin: no symptoms reported Psychiatric/Neurological: No Symptoms Reported Endocrine: No Symptoms Reported Hematologic/Lymphatic: No Symptoms Reported Past Yllztpq-Yjezrg-Trwvxm Hx Past Med/Social Hx: Reviewed and Corrections made Patient Social History Alcohol Use: Regular Use Drug of Choice: CBD OIL Smoking Status: Never a Smoker Recent Hopitalizations: No Substance type: Other (CBD OIL) Seasonal Allergies Seasonal Allergies: No Past Medical History Surgeries: No Respiratory: No Cardiac: Yes (AFIB DX 05/16/20) Atrial Fibrillation Neurological: No Genitourinary: No Gastrointestinal: Yes (UMBILICAL HERNIA--NO SURGERY) Musculoskeletal: No Endocrine: No HEENT: Yes (Strabismus) Glaucoma Cancer: No Psychosocial: No Integumentary: No Blood Disorders: No Adverse Reaction/Blood Tranf: No Physical Exam Vital Signs Vital Signs - First Documented 05/19/20 19:31 Temp 36.7 Pulse 81 Resp 20 B/P (MAP) 161/110 (127) Pulse Ox 97 O2 Delivery Room Air Capillary Refill : Height, Weight, BMI Height: '" Weight: lbs. oz. kg; 29.36 BMI Method: General Appearance: No Apparent Distress, WD/WN, Other (TALKS NON-STOP, DIFFICULT TO KEEP ON SUBJECT) Neck: Normal Inspection Respiratory: Normal Breath Sounds, No Accessory Muscle Use, No Respiratory Distress Cardiovascular: No Edema, No JVD, No Murmur, Normal Peripheral Pulses, Irregularly Irregular, Other (VARIABLE RATE--70-110'S) Gastrointestinal: Non Tender, Soft, Hernia (SOFT, REDUCIBLE UMBILICAL HERNIA. BRUISING AROUND UMBILICUS) Extremity: Normal Capillary Refill, Normal Inspection, Normal Range of Motion, Non Tender, No Calf Tenderness, No Pedal Edema Neurologic/Psychiatric: Alert, Oriented x3, No Motor/Sensory Deficits, Normal Mood/Affect, trials manager II-XII Norm as Tested Skin: Normal Color, Warm/Dry Progress/Results/Core Measures Results/Orders Lab Results Laboratory Tests Test 05/19/20 19:30 05/19/20 21:35 05/19/20 22:25 Range/Units White Blood Count 6.7 4.3-11.0 10^3/uL Red Blood Count 4.93 4.30-5.52 10^6/uL Hemoglobin 16.0 13.3-17.7 g/dL Hematocrit 46 40-54 % Mean Corpuscular Volume 93 80-99 fL Mean Corpuscular Hemoglobin 33 25-34 pg Mean Corpuscular Hemoglobin Concent 35 32-36 g/dL Red Cell Distribution Width 11.9 10.0-14.5 % Platelet Count 221 130-400 10^3/uL Mean Platelet Volume 10.4 9.0-12.2 fL Immature Granulocyte % (Auto) 0 % Neutrophils (%) (Auto) 68 42-75 % Lymphocytes (%) (Auto) 12 12-44 % Monocytes (%) (Auto) 20 H 0-12 % Eosinophils (%) (Auto) 0 0-10 % Basophils (%) (Auto) 0 0-10 % Neutrophils # (Auto) 4.5 1.8-7.8 10^3/uL Lymphocytes # (Auto) 0.8 L 1.0-4.0 10^3/uL Monocytes # (Auto) 1.4 H 0.0-1.0 10^3/uL Eosinophils # (Auto) 0.0 0.0-0.3 10^3/uL Basophils # (Auto) 0.0 0.0-0.1 10^3/uL Immature Granulocyte # (Auto) 0.0 0.0-0.1 10^3/uL Neutrophils % (Manual) 73 % Lymphocytes % (Manual) 8 % Monocytes % (Manual) 18 % Eosinophils % (Manual) 1 % Blood Morphology Comment NORMAL Prothrombin Time 13.6 12.2-14.7 SEC INR Comment 1.0 0.8-1.4 Activated Partial Thromboplast Time 32 24-35 SEC Sodium Level 137 135-145 MMOL/L Potassium Level 3.9 3.6-5.0 MMOL/L Chloride Level 104 98-107 MMOL/L Carbon Dioxide Level 19 L 21-32 MMOL/L Anion Gap 14 5-14 MMOL/L Blood Urea Nitrogen 23 H 7-18 MG/DL Creatinine 0.90 0.60-1.30 MG/DL Estimat Glomerular Filtration Rate > 60 BUN/Creatinine Ratio 26 Glucose Level 98 70-105 MG/DL Calcium Level 8.3 L 8.5-10.1 MG/DL Corrected Calcium 8.4 L 8.5-10.1 MG/DL Magnesium Level 2.0 1.6-2.4 MG/DL Total Bilirubin 0.9 0.1-1.0 MG/DL Aspartate Amino Transf (AST/SGOT) 36 H 5-34 U/L Alanine Aminotransferase (ALT/SGPT) 52 0-55 U/L Alkaline Phosphatase 48 40-136 U/L Total Creatine Kinase 192 30-200 U/L Creatine Kinase MB 1.9 <6.6 NG/ML Myoglobin 100.5 H 10.0-92.0 NG/ML Troponin I < 0.028 < 0.028 <0.028 NG/ML B-Type Natriuretic Peptide 27.8 <100.0 PG/ML Total Protein 7.0 6.4-8.2 GM/DL Albumin 3.9 3.2-4.5 GM/DL TSH [place] Testing 0.47 0.35-4.94 UIU/ML Serum Alcohol < 10 <10 MG/DL Urine Color YELLOW Urine Clarity CLEAR Urine pH 7.0 5-9 Urine Specific [place] 1.020 1.016-1.022 Urine Protein NEGATIVE NEGATIVE Urine Glucose (UA) NEGATIVE NEGATIVE Urine Ketones 1+ H NEGATIVE Urine Nitrite NEGATIVE NEGATIVE Urine Bilirubin NEGATIVE NEGATIVE Urine Urobilinogen 0.2 < = 1.0 MG/DL Urine Leukocyte Esterase NEGATIVE NEGATIVE Urine RBC (Auto) TRACE-L NEGATIVE Urine RBC 0-2 /HPF Urine WBC NONE /HPF Urine Squamous Epithelial Cells 2-5 /HPF Urine Crystals NONE /LPF Urine Bacteria NEGATIVE /HPF Urine Casts NONE /LPF Urine Mucus MODERATE H /LPF Urine Culture Indicated NO Urine Opiates Screen NEGATIVE NEGATIVE Urine Oxycodone Screen NEGATIVE NEGATIVE Urine Methadone Screen NEGATIVE NEGATIVE Urine Propoxyphene Screen NEGATIVE NEGATIVE Urine Barbiturates Screen NEGATIVE NEGATIVE Ur Tricyclic Antidepressants Screen NEGATIVE NEGATIVE Urine Phencyclidine Screen NEGATIVE NEGATIVE Urine Amphetamines Screen NEGATIVE NEGATIVE Urine Methamphetamines Screen NEGATIVE NEGATIVE Urine Benzodiazepines Screen NEGATIVE NEGATIVE Urine Cocaine Screen NEGATIVE NEGATIVE Urine Cannabinoids Screen NEGATIVE NEGATIVE My Orders Orders - KALI DASH DO Ed Iv/Invasive Line Start (05/19/20 19:09) Ekg Tracing (05/19/20 19:09) O2 (05/19/20 19:09) Monitor-Rhythm Ecg Trace Only (05/19/20 19:09) BNP (05/19/20 19:09) Cbc With Automated Diff (05/19/20:) Comprehensive Metabolic Panel (05/19/20 19:09) Creatine Kinase (05/19/20 19:09) Creatine Kinase Mb (05/19/20 19:09) Magnesium (05/19/20 19:09) Protime With Inr (05/19/20:) Partial Thromboplastin Time (05/19/20 19:09) Thyroid Analyzer (05/19/20 19:09) Myoglobin Serum (05/19/20 19:09) Troponin I (05/19/20 19:09) Chest 1 View, Ap/Pa Only (05/19/20 19:09) Aspirin Chewable Tablet (Baby Aspirin Ch (05/19/20 19:15) Nitroglycerin 0.4 Mg Btl 25's (Nitrostat (05/19/20 19:15) Diltiazem Injection (Cardizem Injection) (05/19/20 19:30) Diltiazem Drip Pre-Mix (Cardizem Drip Pr (05/19/20 19:30) Diltiazem Drip Pre-Mix (Cardizem Drip Pr (05/19/20 19:23) Diltiazem Injection (Cardizem Injection) (05/19/20 19:23) Alcohol (05/19/20 19:38) Drug Screen Stat (Urine) (05/19/20 19:38) Ua Culture If Indicated (05/19/20 19:38) Manual Differential (05/19/20 19:30) Apixaban Tablet (Eliquis Tablet) (05/19/20 21:00) Ekg Tracing (05/19/20 21:38) Troponin I (05/19/20 21:38) Medications Given in ED Current Medications Medications Dose Ordered Sig/Leopoldo Route Start Time Stop Time Status Last Admin Dose Admin Apixaban 5 mg ONCE ONCE PO 05/19/20 21:00 05/19/20 21:01 DC 05/19/20 21:38 5 MG Aspirin 324 mg ONCE ONCE PO 05/19/20 19:15 05/19/20 19:16 DC 05/19/20 19:39 324 MG Diltiazem HCl 20 mg ONCE ONCE IVP 05/19/20 19:30 05/19/20 19:31 DC 05/19/20 19:39 20 MG Vital Signs/I&O 05/19/20 19:31 Temp 36.7 Pulse 81 Resp 20 B/P (MAP) 161/110 (127) Pulse Ox 97 O2 Delivery Room Air Progress Progress Note : Progress Note PLACED IN ISOLATION ROOM PPE WORN AT ALL TIMES GIVEN ASPIRIN AND HIS PM DOSE OF ELIQUIS 5 MG GIVEN CARDIZEM BOLUS FOLLOWED BY CARDIZEM DRIP--RATE DOWN IN 70'S AND PT STATES HE FEELS FINE LATER THIS WAS DC'D AT BOTH DR. FONSECA'S AND DR. PIMENTEL'S ADVICE. REPEAT TROPONIN AND EKG DONE PT ASYMPTOMATIC FOR ENTIRE ER STAY PT MAKING MULTIPLE DEMANDS THROUGHOUT ER STAY--WANTING SOMEONE TO FIX TV, WANTING FOOD, ETC. PT REFUSES TO LEAVE MASK ON, DESPITE BEING TOLD MULTIPLE TIMES THAT HE NEEDS TO LEAVE MASK ON. Initial ECG Impression Date: May 19, 2020 Initial ECG Impression Time: 19: Initial ECG Rate: 70 Initial ECG Rhythm: A Fib/Flutter (ATRIAL FLUTTER) EKG : EKG Time: : Rate: 75 Rhythm: A Fib/Flutter ECG Comparisson: Unchanged Diagnostic Imaging Comments CXR--PER RADIOLOGIST REPORT AT 2047 FINDINGS: The heart is borderline enlarged but stable when compared to the prior exam of 05/17/2019. The streaky opacities in both lung bases, seen previously, are again evident. A few new areas of increased density have developed in the right lower lobe. The upper lungs remain clear. The mediastinum is not widened. The osseous structures are intact. IMPRESSION: A few new streaky densities have developed in the right lower lobe. The overall appearance of the chest is otherwise stable. A follow up study would be recommended for continued evaluation. Reviewed: Reviewed by Me Departure Communication (Admissions) 2041--SPOKE WITH DR. FONSECA, HOSPITALIST. HE ADVISES TO SEND PT HOME AND FOLLOW UP WITH CARDIOLOGY PREVIOUSLY ADVISED. 2044--SPOKE WITH DR. PIMENTEL, PROGRAM PROJECT MANAGER, HE ADVISES THAT PT MAY GO HOME, WILL DO REPEAT TROPONIN AND INCREASE DOSE TO 360, AND FOLLOW UP IN OFFICE NEXT WEEK. Impression Primary Impression: Atrial flutter with rapid ventricular response Additional Impression: COVID-19 Disposition: 01 HOME, SELF-CARE Condition: Improved Departure-Patient Inst. Referrals: ANABELL PIMENTEL MD FACP FAC CCDS NO,LOCAL PHYSICIAN (PCP) Primary Care Physician [facility] Patient Instructions: Atrial Flutter (DC), Coronavirus Disease 2019 (COVID-19) ED Add. Discharge Instructions: WILL INCREASE YOUR DOSE OF CARDIZEM TO 360 MG--START NEW MEDICATION IN THE MORNING AND STOP YOUR DOSE OF 240 MG CONTINUE YOUR ELIQUIS PRESCRIBED FOLLOW UP WITH DR. PIMENTEL, PROGRAM PROJECT MANAGER, NEXT WEEK FOLLOW UP WITH [facility] IF YOU HAVE NEW COVID-19 SYMPTOMS RETURN TO ER IF YOUR SYMPTOMS ARE SIGNIFICANTLY WORSE All discharge instructions reviewed with patient and/or family. Voiced understanding. Scripts Diltiazem HCl (Cardizem Cd) 360 Mg Cap.er.24h 360 MG PO DAILY, #30 CAP Prov: KALI DASH DO 05/19/20 KALI DASH DO May 19, 2020 19:35
[2020-05-19 19:54] LABS: BASOPHILS % (AUTO) 0 % (0-10); EOSINOPHILS % (AUTO) 0 % (0-10); HEMATOCRIT 46 % (40-54); LYMPHOCYTES # (AUTO) 0.8 10^3/uL (1.0-4.0); LYMPHOCYTES % (AUTO) 12 % (12-44); MEAN CORPUSCULAR HEMOGLOBIN 33 pg (25-34); MEAN CORPUSCULAR HGB CONC 35 g/dL (32-36); MEAN CORPUSCULAR VOLUME 93 fL (80-99); MEAN PLATELET VOLUME 10.4 fL (9.0-12.2); MONOCYTES # (AUTO) 1.4 10^3/uL (0.0-1.0); MONOCYTES % (AUTO) 20 % (0-12); NEUTROPHILS # (AUTO) 4.5 10^3/uL (1.8-7.8); NEUTROPHILS % (AUTO) 68 % (42-75); PLATELET COUNT 221 10^3/uL (130-400); WHITE BLOOD COUNT 6.7 10^3/uL (4.3-11.0)
[2020-05-19 20:08] LABS: PROTHROMBIN TIME PATIENT 13.6 SEC (12.2-14.7)
[2020-05-19 20:16] LABS: ALANINE AMINOTRANSFERASE 52 U/L (0-55); ALBUMIN 3.9 GM/DL (3.2-4.5); ALKALINE PHOSPHATASE 48 U/L (40-136); BILIRUBIN,TOTAL 0.9 MG/DL (0.1-1.0); BUN/CREATININE RATIO 26; CALCIUM 8.3 MG/DL (8.5-10.1); CARBON DIOXIDE 19 MMOL/L (21-32); CHLORIDE 104 MMOL/L (98-107); CREATINE KINASE 192 U/L (30-200); GFR ESTIMATED > 60; GLUCOSE 98 MG/DL (70-105); POTASSIUM 3.9 MMOL/L (3.6-5.0); SODIUM 137 MMOL/L (135-145)
[2020-05-19 20:36] LABS: CREATINE KINASE MB 1.9 NG/ML (<6.6); TSH (THYROID ANALYZER) 0.47 UIU/ML (0.35-4.94)
--- NOTE | 2020-05-19 20:46 | Diagnostic Imaging Report ---
INDICATION: Chest pain, Covid positive. EXAMINATION: Portable erect AP chest at 8:06 p.m. FINDINGS: The heart is borderline enlarged but stable when compared to the prior exam of 05/17/2019. The streaky opacities in both lung bases, seen previously, are again evident. A few new areas of increased density have developed in the right lower lobe. The upper lungs remain clear. The mediastinum is not widened. The osseous structures are intact. IMPRESSION: A few new streaky densities have developed in the right lower lobe. The overall appearance of the chest is otherwise stable. A follow up study would be recommended for continued evaluation. Dictated by: Dictated on workstation # [id number]
[2020-05-19] MEDS ORDERED: APIXABAN 5 MG (ELIQUIS) TABLET PO ONE (21:00)
[2020-05-19 21:04] LABS: EOSINOPHILS % (MANUAL) 1 %; LYMPHOCYTES % (MANUAL) 8 %; MONOCYTES % (MANUAL) 18 %; NEUTROPHILS % (MANUAL) 73 %; RBC MORPH NORMAL
[2020-05-19 21:40] LABS: BILIRUBIN,URINE NEGATIVE (NEGATIVE); CLARITY,URINE CLEAR; COLOR,URINE YELLOW; GLUCOSE, URINE (UA) NEGATIVE (NEGATIVE); KETONES,URINE 1+ (NEGATIVE); LEUKOCYTE ESTERASE ,URINE NEGATIVE (NEGATIVE); NITRITE,URINE NEGATIVE (NEGATIVE); PROTEIN,URINE NEGATIVE (NEGATIVE)
[2020-05-19] MEDS ORDERED: DILT360C26 PO (21:46)
[2020-05-19 21:51] LABS: BACTERIA,URINE NEGATIVE /HPF; RBC,URINE 0-2 /HPF
[2020-05-19 22:23] LABS: AMPHETAMINE SCREEN, URINE NEGATIVE (NEGATIVE); BARBITURATE SCREEN URINE NEGATIVE (NEGATIVE); BENZODIAZEPINES SCREEN URINE NEGATIVE (NEGATIVE); CANNABINOID SCREEN, URINE NEGATIVE (NEGATIVE); COCAINE SCREEN URINE NEGATIVE (NEGATIVE); METHADONE STAT NEGATIVE (NEGATIVE); METHAMPHETAMINE SCREEN URINE S NEGATIVE (NEGATIVE); OPIATE SCREEN URINE NEGATIVE (NEGATIVE); OXYCODONE STAT NEGATIVE (NEGATIVE); PROPOXYPHENE STAT NEGATIVE (NEGATIVE); TRICYCLIC ANTIDEPRESSANTS SCRE NEGATIVE (NEGATIVE)
== END 2020-05-19 23:38 | disposition home or self-care (01) ==
LOC: EDUNIT# 19:03 → ER 19:07
DX: U07.1 COVID-19 (principal); I48.92 Unspecified atrial flutter; K42.9 Umbilical hernia without obstruction or gangrene; Z79.01 Long term (current) use of anticoagulants
CPT/HCPCS: 71045; 80053; 80306; 81000; 82550; 82553; 83735; 83874; 83880; 84443; 84484; 85007; 85027; 85610; 85730; 93041; 99284; G0480; 36415; 80320

== ENCOUNTER 2020-05-23 16:58 | Emergency (ER) | payer SELFPAY ==
[~2020-05-23] VITALS: Ht 187 cm; Wt 102.0 kg
[~2020-05-23 16:58] MED LIST changes: +DILT360C26 PO
[2020-05-23 17:45] LABS: BASOPHILS % (AUTO) 0 % (0-10); EOSINOPHILS % (AUTO) 0 % (0-10); HEMATOCRIT 45 % (40-54); HEMOGLOBIN 16.4 g/dL (13.3-17.7); LYMPHOCYTES # (AUTO) 0.9 10^3/uL (1.0-4.0); LYMPHOCYTES % (AUTO) 13 % (12-44); MEAN CORPUSCULAR HEMOGLOBIN 33 pg (25-34); MEAN CORPUSCULAR HGB CONC 37 g/dL (32-36); MEAN CORPUSCULAR VOLUME 89 fL (80-99); MEAN PLATELET VOLUME 9.8 fL (9.0-12.2); MONOCYTES # (AUTO) 1.4 10^3/uL (0.0-1.0); MONOCYTES % (AUTO) 19 % (0-12); NEUTROPHILS # (AUTO) 4.7 10^3/uL (1.8-7.8); NEUTROPHILS % (AUTO) 67 % (42-75); PLATELET COUNT 225 10^3/uL (130-400)
[2020-05-23 17:59] LABS: CHLORIDE 100 MMOL/L (98-107); POTASSIUM 3.5 MMOL/L (3.6-5.0); SODIUM 130 MMOL/L (135-145)
[2020-05-23 18:00] LABS: BAND NEUTROPHILS 0 %; BASOPHILS % (MANUAL) 0 %; CALCIUM 8.2 MG/DL (8.5-10.1); EOSINOPHILS % (MANUAL) 0 %; LYMPHOCYTES % (MANUAL) 13 %; MONOCYTES % (MANUAL) 12 %; NEUTROPHILS % (MANUAL) 59 %; REACTIVE LYMPHOCYTES 16 %; SMUDGE CELLS SLIGHT; TOXIC GRANULATION/VACUOLAZATIO 1+
[2020-05-23 18:01] LABS: GLUCOSE 108 MG/DL (70-105); TOTAL PROTEIN 7.2 GM/DL (6.4-8.2)
[2020-05-23 18:02] LABS: CARBON DIOXIDE 17 MMOL/L (21-32)
[2020-05-23 18:03] LABS: BILIRUBIN,TOTAL 1.1 MG/DL (0.1-1.0)
[2020-05-23 18:04] LABS: ALKALINE PHOSPHATASE 51 U/L (40-136); CREATININE SERUM 0.85 MG/DL (0.60-1.30); GFR ESTIMATED > 60
[2020-05-23 18:06] LABS: BUN/CREATININE RATIO 19
[2020-05-23 18:07] LABS: ALANINE AMINOTRANSFERASE 52 U/L (0-55); MAGNESIUM 2.2 MG/DL (1.6-2.4)
[2020-05-23 18:08] LABS: INR 1.1 (0.8-1.4); PROTHROMBIN TIME PATIENT 14.2 SEC (12.2-14.7)
--- NOTE | 2020-05-23 18:22 | ED General ---
General Chief Complaint: General Problems/Pain Stated Complaint: DEFIBRILLATION / LOSS OF APPETITE / COVID + Nursing Triage Note: PT REPORTS TO ED WEAKNESS AND A-FIB SYMPTOMS TODAY AROUND 1000. PT WAS COVID POSITIVE ABOUT A WEEK AGO. PT AMB TO ROOM 09 WITHOUT DIFFICULTY. Nursing Sepsis Screen: No Definite Risk Source of Information: Patient, Old Records Exam Limitations: No Limitations History of Present Illness Date Seen by Provider: May 23, 2020 Time Seen by Provider: 17:20 Initial Comments This 65-year-old gentleman presents to the emergency room with complaints of weakness, loss of appetite, dry mouth, and atrial flutter. He was first seen here on May 16 when he was admitted for atrial flutter with RVR. He was simultaneously diagnosed with COVID-19. He has since had a follow-up ER visit for evaluation of symptoms. He was discharged home in stable condition with outpatient follow-up encouraged. He is afebrile at this time. He denies chest pain or shortness of breath. He is in rate controlled atrial flutter at this time. Allergies and Home Medications Allergies Coded Allergies: No Known Drug Allergies (Unverified , 05/16/20) Home Medications Apixaban 5 Mg Tablet, 5 MG PO BID Prescribed by: MELIZA FONSECA on 05/17/20 1043 Diltiazem HCl 240 Mg Cap.er.24h, 240 MG PO DAILY Prescribed by: MELIZA FONSECA on 05/17/20 1043 Diltiazem HCl 360 Mg Cap.er.24h, 360 MG PO DAILY Prescribed by: KALI DASH on 05/19/20 2146 Patient Home Medication List Home Medication List Reviewed: Yes Review of Systems Review of Systems Constitutional: no symptoms reported EENTM: see HPI Respiratory: no symptoms reported Cardiovascular: see HPI Gastrointestinal: see HPI Genitourinary: no symptoms reported Musculoskeletal: no symptoms reported Skin: no symptoms reported Psychiatric/Neurological: No Symptoms Reported Hematologic/Lymphatic: No Symptoms Reported Immunological/Allergic: no symptoms reported Past Qhljxqf-Bdjiou-Tijnjx Hx Past Med/Social Hx: Reviewed and Corrections made Patient Social History Alcohol Use: Occasionally Uses Drug of Choice: CBD OIL Smoking Status: Never a Smoker 2nd Hand Smoke Exposure: No Recent Infectious Disease Expo: No Recent Hopitalizations: Yes (05/17/20 FOR A FIB) Seasonal Allergies Seasonal Allergies: No Past Medical History Surgeries: No (LEFT EYE SURGERY) Respiratory: No Cardiac: Yes (Atrial flutter DX 05/16/20) Atrial Fibrillation (Atrial flutter) Neurological: No Genitourinary: No Gastrointestinal: Yes (UMBILICAL HERNIA--NO SURGERY) Musculoskeletal: No Endocrine: No HEENT: Yes (Strabismus) Glaucoma Cancer: No Psychosocial: No Integumentary: No Blood Disorders: No Adverse Reaction/Blood Tranf: No Physical Exam Vital Signs Vital Signs - First Documented 05/23/20 17:16 Temp 36.8 Pulse 101 Resp 21 B/P (MAP) 161/83 (109) Pulse Ox 95 O2 Delivery Room Air Capillary Refill : Less Than 3 Seconds Height, Weight, BMI Height: '" Weight: lbs. oz. kg; 29.00 BMI Method: General Appearance: No Apparent Distress, WD/WN HEENT: PERRL/EOMI, Normal ENT Inspection, Other (Oropharynx a little dry) Neck: Normal Inspection Respiratory: Lungs Clear, Normal Breath Sounds, No Accessory Muscle Use, No Respiratory Distress Cardiovascular: No Edema, No Murmur, Tachycardia (Rate controlled) Gastrointestinal: Normal Bowel Sounds, Non Tender Extremity: Normal Inspection, No Pedal Edema Neurologic/Psychiatric: Alert, Oriented x3, No Motor/Sensory Deficits, Normal Mood/Affect, beverage steward II-XII Norm as Tested, Other (Patient has difficulty focusing on the conversation at hand. He perseverates on things not related to the conversation. He is slightly paranoid at times.) Skin: Normal Color, Warm/Dry Progress/Results/Core Measures Suspected Sepsis Recent Fever Within 48 Hours: No Infection Criteria Present: None New/Unexplained Altered Menta: No Sepsis Screen: No Definite Risk SIRS Temperature: Pulse: 101 Respiratory Rate: 21 Laboratory Tests 05/23/20 17:33: White Blood Count 7.0 Blood Pressure 161 /83 Mean: 109 Laboratory Tests 05/23/20 17:33: Creatinine 0.85, INR Comment 1.1, Platelet Count 225, Total Bilirubin 1.1H Results/Orders Lab Results Laboratory Tests Test 05/23/20 17:33 05/23/20 18:07 Range/Units White Blood Count 7.0 4.3-11.0 10^3/uL Red Blood Count 5.04 4.30-5.52 10^6/uL Hemoglobin 16.4 13.3-17.7 g/dL Hematocrit 45 40-54 % Mean Corpuscular Volume 89 80-99 fL Mean Corpuscular Hemoglobin 33 25-34 pg Mean Corpuscular Hemoglobin Concent 37 H 32-36 g/dL Red Cell Distribution Width 11.6 10.0-14.5 % Platelet Count 225 130-400 10^3/uL Mean Platelet Volume 9.8 9.0-12.2 fL Immature Granulocyte % (Auto) 1 % Neutrophils (%) (Auto) 67 42-75 % Lymphocytes (%) (Auto) 13 12-44 % Monocytes (%) (Auto) 19 H 0-12 % Eosinophils (%) (Auto) 0 0-10 % Basophils (%) (Auto) 0 0-10 % Neutrophils # (Auto) 4.7 1.8-7.8 10^3/uL Lymphocytes # (Auto) 0.9 L 1.0-4.0 10^3/uL Monocytes # (Auto) 1.4 H 0.0-1.0 10^3/uL Eosinophils # (Auto) 0.0 0.0-0.3 10^3/uL Basophils # (Auto) 0.0 0.0-0.1 10^3/uL Immature Granulocyte # (Auto) 0.0 0.0-0.1 10^3/uL Neutrophils % (Manual) 59 % Lymphocytes % (Manual) 13 % Monocytes % (Manual) 12 % Eosinophils % (Manual) 0 % Basophils % (Manual) 0 % Band Neutrophils 0 % Reactive Lymphocytes 16 % Smudge Cells SLIGHT Toxic Granulation 1+ Prothrombin Time 14.2 12.2-14.7 SEC INR Comment 1.1 0.8-1.4 Activated Partial Thromboplast Time 35 24-35 SEC Sodium Level 130 L 135-145 MMOL/L Potassium Level 3.5 L 3.6-5.0 MMOL/L Chloride Level 100 98-107 MMOL/L Carbon Dioxide Level 17 L 21-32 MMOL/L Anion Gap 13 5-14 MMOL/L Blood Urea Nitrogen 16 7-18 MG/DL Creatinine 0.85 0.60-1.30 MG/DL Estimat Glomerular Filtration Rate > 60 BUN/Creatinine Ratio 19 Glucose Level 108 H 70-105 MG/DL Calcium Level 8.2 L 8.5-10.1 MG/DL Corrected Calcium 8.2 L 8.5-10.1 MG/DL Magnesium Level 2.2 1.6-2.4 MG/DL Total Bilirubin 1.1 H 0.1-1.0 MG/DL Aspartate Amino Transf (AST/SGOT) 38 H 5-34 U/L Alanine Aminotransferase (ALT/SGPT) 52 0-55 U/L Alkaline Phosphatase 51 40-136 U/L Myoglobin 97.9 H 10.0-92.0 NG/ML Troponin I < 0.028 <0.028 NG/ML Total Protein 7.2 6.4-8.2 GM/DL Albumin 4.0 3.2-4.5 GM/DL Urine Color YELLOW Urine Clarity CLEAR Urine pH 6.5 5-9 Urine Specific [place] 1.015 L 1.016-1.022 Urine Protein NEGATIVE NEGATIVE Urine Glucose (UA) NEGATIVE NEGATIVE Urine Ketones 1+ H NEGATIVE Urine Nitrite NEGATIVE NEGATIVE Urine Bilirubin NEGATIVE NEGATIVE Urine Urobilinogen 1.0 < = 1.0 MG/DL Urine Leukocyte Esterase NEGATIVE NEGATIVE Urine RBC (Auto) TRACE-L NEGATIVE Urine RBC RARE /HPF Urine WBC RARE /HPF Urine Squamous Epithelial Cells 0-2 /HPF Urine Crystals NONE /LPF Urine Bacteria TRACE /HPF Urine Casts NONE /LPF Urine Mucus NEGATIVE /LPF Urine Culture Indicated NO My Orders Orders - JIE PINEDO MD Cbc With Automated Diff (05/23/20 17:19) Magnesium (05/23/20 17:19) Ekg Tracing (05/23/20 17:19) Comprehensive Metabolic Panel (05/23/20 17:19) Myoglobin Serum (05/23/20 17:19) Protime With Inr (05/23/20 17:19) Partial Thromboplastin Time (05/23/20 17:19) O2 (05/23/20 17:19) Monitor-Rhythm Ecg Trace Only (05/23/20 17:19) Ed Iv/Invasive Line Start (05/23/20 17:19) Troponin I (05/23/20 17:19) Manual Differential (05/23/20 17:33) Lactated Ringers (Lr 1000 Ml Iv Solution (05/23/20 18:30) Ua Culture If Indicated (05/23/20 18:24) Medications Given in ED Current Medications Medications Dose Ordered Sig/Leopoldo Route Start Time Stop Time Status Last Admin Dose Admin Lactated Ringer's 1,000 ml @ 0 mls/hr Q0M ONCE IV 05/23/20 18:30 05/23/20 18:31 DC 05/23/20 17:40 1,000 MLS/HR Vital Signs/I&O 05/23/20 05/23/20 17:16 19:04 Temp 36.8 36.8 Pulse 101 87 Resp 21 21 B/P (MAP) 161/83 (109) 134/84 Pulse Ox 95 100 O2 Delivery Room Air Room Air 05/24/20 00:00 Intake Total 1000 ml Balance 1000 ml Capillary Refill : Less Than 3 Seconds Blood Pressure Mean: 109 ECG Initial ECG Impression Date: May 23, 2020 Initial ECG Impression Time: 17:27 Initial ECG Rate: 97 Initial ECG Rhythm: A Fib/Flutter Comment Rate controlled atrial flutter with no ST elevation or depression. Departure Impression Primary Impression: Atrial flutter with rapid ventricular response Additional Impressions: COVID-19 Dysgeusia Loss of appetite Disposition: HOME, SELF-CARE Condition: Improved Departure-Patient Inst. Referrals: NO,LOCAL PHYSICIAN (PCP/Family) Primary Care Physician Patient Instructions: Atrial Flutter, Coronavirus Disease 2019 (COVID-19) Overview Add. Discharge Instructions: Continue with your medications as previously directed. Try eating and drinking prior to taking your medications to prevent upset stomach and loss of appetite related to medications. Much of your loss of appetite may be due to COVID-19. The symptoms should fade with time. Follow-up with your pickling operator as previously directed. If it is difficult to eat solids, consider consuming more nutritious liquids such as protein drinks, soups, yogurt, etc. Also consider taking a multivitamin for general nutrition. Call with questions or concerns. Return to the ER if you have worsening symptoms, especially if you develop chest pain or your heart rate exceeds 120 for a prolonged period of time. All discharge instructions reviewed with patient and/or family. Voiced understanding. Copy Copies To 1: ANABELL PIMENTEL MD FACP FACC CCDS JIE PINEDO MD May 23, 2020 18:22
[2020-05-23 18:30] LABS: BILIRUBIN,URINE NEGATIVE (NEGATIVE); CLARITY,URINE CLEAR; COLOR,URINE YELLOW; GLUCOSE, URINE (UA) NEGATIVE (NEGATIVE); KETONES,URINE 1+ (NEGATIVE); LEUKOCYTE ESTERASE ,URINE NEGATIVE (NEGATIVE); NITRITE,URINE NEGATIVE (NEGATIVE); PH,URINE 6.5 (5-9); PROTEIN,URINE NEGATIVE (NEGATIVE)
[2020-05-23] MEDS ORDERED: LACTATED RINGERS 1,000 ML IV ONE (18:30)
[2020-05-23 18:37] LABS: BACTERIA,URINE TRACE /HPF; RBC,URINE RARE /HPF; SQUAMOUS EPITHELIAL CELL,UR 0-2 /HPF; WBC,URINE RARE /HPF
[2020-05-23 19:04] VITALS: BP 134/84
== END 2020-05-23 19:04 | disposition home or self-care (01) ==
LOC: EDUNIT# 16:58 → ER 17:02
DX: I48.92 Unspecified atrial flutter (principal); U07.1 COVID-19; R63.0 Anorexia; R43.2 Parageusia; Z73.0 Burn-out; Z79.01 Long term (current) use of anticoagulants
CPT/HCPCS: 36415; 80053; 81000; 83735; 83874; 84484; 85007; 85027; 85610; 85730; 93005; 93041

== ENCOUNTER 2020-05-24 12:28 | Emergency (ER) | payer SELFPAY ==
[~2020-05-24] VITALS: Ht 187 cm; Wt 102.0 kg
[2020-05-24] MEDS: LACTATED RINGERS 1,000 ML IV ONE ×2 (13:05→13:06)
[2020-05-24 13:11] LABS: BASOPHILS % (AUTO) 0 % (0-10); EOSINOPHILS % (AUTO) 0 % (0-10); HEMATOCRIT 46 % (40-54); HEMOGLOBIN 16.9 g/dL (13.3-17.7); LYMPHOCYTES # (AUTO) 0.8 10^3/uL (1.0-4.0); LYMPHOCYTES % (AUTO) 12 % (12-44); MEAN CORPUSCULAR HEMOGLOBIN 33 pg (25-34); MEAN CORPUSCULAR HGB CONC 36 g/dL (32-36); MEAN CORPUSCULAR VOLUME 90 fL (80-99); MONOCYTES # (AUTO) 1.2 10^3/uL (0.0-1.0); MONOCYTES % (AUTO) 18 % (0-12); NEUTROPHILS # (AUTO) 4.5 10^3/uL (1.8-7.8); NEUTROPHILS % (AUTO) 69 % (42-75); PLATELET COUNT 226 10^3/uL (130-400); WHITE BLOOD COUNT 6.5 10^3/uL (4.3-11.0)
[2020-05-24 13:21] LABS: BILIRUBIN,URINE NEGATIVE (NEGATIVE); CLARITY,URINE CLEAR; COLOR,URINE YELLOW; GLUCOSE, URINE (UA) NEGATIVE (NEGATIVE); KETONES,URINE 1+ (NEGATIVE); LEUKOCYTE ESTERASE ,URINE TRACE (NEGATIVE); NITRITE,URINE NEGATIVE (NEGATIVE); PROTEIN,URINE TRACE (NEGATIVE)
[2020-05-24 13:22] LABS: BACTERIA,URINE NEGATIVE /HPF; CHLORIDE 103 MMOL/L (98-107); POTASSIUM 3.5 MMOL/L (3.6-5.0); RBC,URINE RARE /HPF; SODIUM 130 MMOL/L (135-145); WBC,URINE RARE /HPF
--- NOTE | 2020-05-24 13:23 | ED General ---
General Chief Complaint: General Problems/Pain Stated Complaint: DIZZY/POSS MED REACTION BLOOD IN URINE COVID + Nursing Triage Note: 3RD VISIT SINCE BEING ADMITTED ON THE . STATES HE FEEL WEAK AND IS GETTING WORSE. Nursing Sepsis Screen: No Definite Risk Source of Information: Patient Exam Limitations: No Limitations History of Present Illness Date Seen by Provider: May 24, 2020 Time Seen by Provider: 12:50 Initial Comments This is 65-year-old gentleman presents to the emergency room with primary complaints of generalized weakness and bloody urine found in his underwear. He was seen and admitted to this facility on May 16 because of new onset A. fib with RVR and diagnosis of COVID-19 on that same day. He was discharged home on Cardizem and Eliquis. Since then he has returned to the emergency room 3 times for evaluation. On his first return visit his Cardizem was increased. On the second visit he received IV fluids and repeat evaluation. No additional therapies were necessary. Today he states he is dizzy and very weak when he tries to get up and ambulate. However, he ambulates to the far end of the emergency room without apparent dyspnea, weakness, or difficulty. Vital signs are stable. He appears to be in atrial fibrillation on the monitor with a controlled rate. He is requesting the phone number for medical record so that he can contact a tunnel drier operator and have records transferred. He states he would like to see a tunnel drier operator in [place] for ablation for treatment of atrial fibrillation/flutter. He continues to have poor appetite and states he has to force himself to eat and drink. He has stated multiple times "I'm just not going to make it". Allergies and Home Medications Allergies Coded Allergies: No Known Drug Allergies (Unverified , 05/16/20) Home Medications Apixaban 5 Mg Tablet, 5 MG PO BID Prescribed by: MELIZA FONSECA on 05/17/20 1043 Diltiazem HCl 240 Mg Cap.er.24h, 240 MG PO DAILY Prescribed by: MELIZA FONSECA on 05/17/20 1043 Diltiazem HCl 360 Mg Cap.er.24h, 360 MG PO DAILY Prescribed by: KALI DASH on 05/19/20 4741 Patient Home Medication List Home Medication List Reviewed: Yes Review of Systems Review of Systems Constitutional: see HPI, weakness EENTM: no symptoms reported Respiratory: no symptoms reported Cardiovascular: see HPI Gastrointestinal: see HPI Genitourinary: see HPI Musculoskeletal: no symptoms reported Skin: no symptoms reported Psychiatric/Neurological: No Symptoms Reported Hematologic/Lymphatic: No Symptoms Reported Past Dyykvph-Zqybgv-Woxhih Hx Past Med/Social Hx: Reviewed Nursing Past Med/Soc Hx Patient Social History Drug of Choice: CBD OIL 2nd Hand Smoke Exposure: No Recent Infectious Disease Expo: No Recent Hopitalizations: Yes (05/17/20 FOR A FIB) Seasonal Allergies Seasonal Allergies: No Past Medical History Surgeries: Yes (Left eye due to glaucoma and strabismus) Respiratory: No Cardiac: Yes (Atrial flutter DX 05/16/20) Atrial Fibrillation Neurological: No Genitourinary: No Gastrointestinal: Yes (UMBILICAL HERNIA--NO SURGERY) Musculoskeletal: No Endocrine: No HEENT: Yes (Strabismus) Glaucoma Cancer: No Psychosocial: No Integumentary: No Blood Disorders: No Adverse Reaction/Blood Tranf: No Physical Exam Vital Signs Vital Signs - First Documented 05/24/20 12:45 Temp 35.3 Pulse 85 Resp 16 B/P (MAP) 168/102 (124) Pulse Ox 96 O2 Delivery Room Air Capillary Refill : Less Than 3 Seconds Height, Weight, BMI Height: '" Weight: lbs. oz. kg; 29.00 BMI Method: General Appearance: No Apparent Distress, WD/WN HEENT: PERRL/EOMI (Strabismus with left eye lateral deviation), Normal ENT Inspection Neck: Normal Inspection Respiratory: Lungs Clear, Normal Breath Sounds, No Accessory Muscle Use Cardiovascular: No Edema, No Murmur, Irregularly Irregular Gastrointestinal: Normal Bowel Sounds, Non Tender, Soft, Other (Umbilical hernia) Extremity: Normal Inspection, No Pedal Edema Neurologic/Psychiatric: Alert, Oriented x3, No Motor/Sensory Deficits, Normal Mood/Affect, psychology tech II-XII Norm as Tested Skin: Normal Color, Warm/Dry, Ecchymosis (Around the umbilicus from an old injury) Progress/Results/Core Measures Suspected Sepsis Recent Fever Within 48 Hours: No Infection Criteria Present: None New/Unexplained Altered Menta: No Sepsis Screen: No Definite Risk SIRS Temperature: Pulse: 85 Respiratory Rate: 16 Laboratory Tests 05/24/20 13:00: White Blood Count 6.5 Blood Pressure 168 /102 Mean: 124 Laboratory Tests 05/24/20 13:00: Creatinine 0.82, Platelet Count 226 Results/Orders Lab Results Laboratory Tests Test 05/24/20 13:00 Range/Units White Blood Count 6.5 4.3-11.0 10^3/uL Red Blood Count 5.18 4.30-5.52 10^6/uL Hemoglobin 16.9 13.3-17.7 g/dL Hematocrit 46 40-54 % Mean Corpuscular Volume 90 80-99 fL Mean Corpuscular Hemoglobin 33 25-34 pg Mean Corpuscular Hemoglobin Concent 36 32-36 g/dL Red Cell Distribution Width 11.7 10.0-14.5 % Platelet Count 226 130-400 10^3/uL Mean Platelet Volume 10.0 9.0-12.2 fL Immature Granulocyte % (Auto) 1 % Neutrophils (%) (Auto) 69 42-75 % Lymphocytes (%) (Auto) 12 12-44 % Monocytes (%) (Auto) 18 H 0-12 % Eosinophils (%) (Auto) 0 0-10 % Basophils (%) (Auto) 0 0-10 % Neutrophils # (Auto) 4.5 1.8-7.8 10^3/uL Lymphocytes # (Auto) 0.8 L 1.0-4.0 10^3/uL Monocytes # (Auto) 1.2 H 0.0-1.0 10^3/uL Eosinophils # (Auto) 0.0 0.0-0.3 10^3/uL Basophils # (Auto) 0.0 0.0-0.1 10^3/uL Immature Granulocyte # (Auto) 0.1 0.0-0.1 10^3/uL Urine Color YELLOW Urine Clarity CLEAR Urine pH 6.0 5-9 Urine Specific [place] 1.020 1.016-1.022 Urine Protein TRACE H NEGATIVE Urine Glucose (UA) NEGATIVE NEGATIVE Urine Ketones 1+ H NEGATIVE Urine Nitrite NEGATIVE NEGATIVE Urine Bilirubin NEGATIVE NEGATIVE Urine Urobilinogen 4.0 < = 1.0 MG/DL Urine Leukocyte Esterase TRACE H NEGATIVE Urine RBC (Auto) NEGATIVE NEGATIVE Urine RBC RARE /HPF Urine WBC RARE /HPF Urine Squamous Epithelial Cells 2-5 /HPF Urine Crystals NONE /LPF Urine Bacteria NEGATIVE /HPF Urine Casts NONE /LPF Urine Mucus MODERATE H /LPF Urine Culture Indicated NO Sodium Level 130 L 135-145 MMOL/L Potassium Level 3.5 L 3.6-5.0 MMOL/L Chloride Level 103 98-107 MMOL/L Carbon Dioxide Level 16 L 21-32 MMOL/L Anion Gap 11 5-14 MMOL/L Blood Urea Nitrogen 15 7-18 MG/DL Creatinine 0.82 0.60-1.30 MG/DL Estimat Glomerular Filtration Rate > 60 BUN/Creatinine Ratio 18 Glucose Level 153 H 70-105 MG/DL Calcium Level 8.1 L 8.5-10.1 MG/DL Magnesium Level 2.2 1.6-2.4 MG/DL C-Reactive Protein High Sensitivity 4.08 H 0.00-0.50 MG/DL My Orders Orders - JIE PINEDO MD Basic Metabolic Panel (05/24/20 12:59) Cbc With Automated Diff (05/24/20 12:59) Hs C Reactive Protein (05/24/20 12:59) Magnesium (05/24/20 12:59) Ua Culture If Indicated (05/24/20 12:59) Ed Iv/Invasive Line Start (05/24/20 12:59) Lactated Ringers (Lr 1000 Ml Iv Solution (05/24/20 13:00) Vital Signs/I&O 05/24/20 12:45 Temp 35.3 Pulse 85 Resp 16 B/P (MAP) 168/102 (124) Pulse Ox 96 O2 Delivery Room Air Capillary Refill : Less Than 3 Seconds Blood Pressure Mean: 124 Progress Note #1: Time: 13:24 Progress Note Patient was seen and examined. CBC and BMP are pending. A liter of LR was ordered but he refused it stating it was just a placebo. Progress Note #2: Time: 13:57 Progress Note Patient is stable and does not require any further treatment or admission to the hospital. Blood was found in his urinalysis. He was encouraged to follow-up with Dr. Shea promptly. Departure Impression Primary Impression: COVID-19 Additional Impressions: Generalized weakness Loss of appetite Atrial fibrillation Qualified Codes: I48.91 - Unspecified atrial fibrillation Disposition: 01 HOME, SELF-CARE Condition: Stable Departure-Patient Inst. Decision time for Depature: 13:46 Referrals: ANABELL SHEA MD FACP FAC CCDS NO,LOCAL PHYSICIAN (PCP) Primary Care Physician Patient Instructions: Atrial Fibrillation, Coronavirus Disease 2019 (COVID-19) Overview Add. Discharge Instructions: Follow-up with Dr. Shea as soon as possible to have your Eliquis renewed. See his contact information below. The number for [facility] medical records is [phone]. Continue to drink plenty of clear liquids and try to eat a well-balanced diet. Eating prior to taking your medications should help prevent upset stomach from the medications. Disruption of taste and smell may be present for months after a COVID-19 infection. Return to care if you have significant worsening in condition. Call with questions or concerns. If the blood in your urine returns, stop Eliquis until the bloody urine stops. Contact your doctor. All discharge instructions reviewed with patient and/or family. Voiced understanding. Copy Copies To 1: ANABELL SHEA MD FACP FACC CCDS JIE PINEDO MD May 24, 2020 13:23
[2020-05-24 13:24] LABS: CALCIUM 8.1 MG/DL (8.5-10.1); GLUCOSE 153 MG/DL (70-105)
[2020-05-24 13:26] LABS: CARBON DIOXIDE 16 MMOL/L (21-32)
[2020-05-24 13:28] LABS: CREATININE SERUM 0.82 MG/DL (0.60-1.30); GFR ESTIMATED > 60
[2020-05-24 13:29] LABS: BUN/CREATININE RATIO 18
[2020-05-24 13:31] LABS: MAGNESIUM 2.2 MG/DL (1.6-2.4)
[2020-05-24 14:02] VITALS: BP 146/80
== END 2020-05-24 14:02 | disposition home or self-care (01) ==
LOC: EDUNIT# 12:28 → ER 12:34
DX: U07.1 COVID-19 (principal); R53.1 Weakness; R63.0 Anorexia; I48.20 Chronic atrial fibrillation, unspecified; I10 Essential (primary) hypertension; Z68.29 Body mass index [BMI] 29.0-29.9, adult; Z79.01 Long term (current) use of anticoagulants
CPT/HCPCS: 36415; 80048; 81000; 83735; 85025; 86141

== ENCOUNTER 2021-10-01 12:29 | Emergency (ER) | payer MEDICARE ==
[2021-10-01] MEDS ORDERED: PANT40TA2 PO (13:16)
--- NOTE | 2021-10-01 13:16 | ED Abdominal Pain ---
General Chief Complaint: Abdominal/GI Problems Stated Complaint: ABD PAIN Nursing Triage Note: PT AMB TO [facility] 5 WITH C/O ABD PAIN, BLOATING AND GAS X6 WEEKS. PT STATES HE GETS GAS PRESSURE AND BLOATING WHEN HE EATS Source of Information: Patient Exam Limitations: No Limitations History of Present Illness Date Seen by Provider: Oct 01, 2021 Time Seen by Provider: 13:13 Initial Comments Patient is a 66-year-old male who presents ED with 6 weeks of abdominal pain. Patient states pain is rated about a 2 when he lies down rates it about a 5 when he stands up. States pain appears to improve after he eats and gets this intermittent crampy pain upper abdomen left-sided abdominal when he does not eat or on empty stomach. Patient states he has been seen at the clinic and was prescribed Carafate concern for ulcers with Mylanta and Pepto-Bismol. He states Pepto-Bismol and Mylanta does help. Denies of any bloody stools, mucousy stool or history of previous abdominal surgery. Denies any chest pain, shortness of breath, fever, chills. Patient is refusing any lab work at this time. He has no current pain at this time. Allergies and Home Medications Allergies Coded Allergies: No Known Drug Allergies (Unverified , 05/16/20) Patient Home Medication List Home Medication List Reviewed: Yes Apixaban (Eliquis) 5 Mg Tablet, 5 MG PO BID Prescribed by: MELIZA FONSECA on 05/17/20 1043 Diltiazem HCl (Diltiazem 24Hr ER) 240 Mg Cap.er.24h, 240 MG PO DAILY Prescribed by: MELIZA FONSECA on 05/17/20 1043 Diltiazem HCl (Cardizem Cd) 360 Mg Cap.er.24h, 360 MG PO DAILY Prescribed by: KALI DASH on 05/19/20 2146 Pantoprazole Sodium (Protonix) 40 Mg Tablet.dr, 40 MG PO DAILY Prescribed by: KEVIN CHACON on 10/01/21 1316 Review of Systems Review of Systems Constitutional: No chills, No diaphoresis, No malaise, No weakness EENTM: No Blurred Vision, No Double Vision Respiratory: Denies Cough, Denies Orthopnea Cardiovascular: Denies Chest Pain Gastrointestinal: Abdominal Pain; Denies Diarrhea; Nausea; Denies Vomiting Genitourinary: Denies Burning, Denies Discharge Musculoskeletal: No back pain, No joint pain Skin: No change in color, No change in hair/nails All Other Systems Reviewed Negative Unless Noted: Yes Past Bntbriy-Savyho-Tuzist Hx Patient Social History Tobacco Use?: No Use of E-Cig and/or Vaping dev: No Substance use?: No Alcohol Use?: No Pt feels they are or have been: No Seasonal Allergies Seasonal Allergies: No Past Medical History Surgery/Hospitalization HX: AFIB, COVID, Surgeries: Yes (Left eye due to glaucoma and strabismus) Respiratory: No Cardiac: Yes (Atrial flutter DX 05/16/20) Atrial Fibrillation Neurological: No Genitourinary: No Gastrointestinal: Yes (UMBILICAL HERNIA--NO SURGERY) Musculoskeletal: No Endocrine: No HEENT: Yes (Strabismus) Glaucoma Cancer: No Psychosocial: No Integumentary: No Blood Disorders: No Adverse Reaction/Blood Tranf: No Physical Exam Vital Signs Vital Signs - First Documented 10/01/21 12:47 Temp 37.0 Pulse 92 Resp 20 B/P (MAP) 172/103 (126) Capillary Refill : Height/Weight/BMI Height: '" Weight: lbs. oz. kg; 29.00 BMI Method: General Appearance: WD/WN, no apparent distress HEENT: PERRL/EOMI, normal ENT inspection, TMs normal, pharynx normal Neck: non-tender, full range of motion, supple, normal inspection Respiratory: chest non-tender, lungs clear, normal breath sounds, no respiratory distress, no accessory muscle use Cardiovascular: regular rate, rhythm, no edema, no gallop, no JVD Gastrointestinal: normal bowel sounds, non tender, soft, no organomegaly, no pulsatile mass Extremities: normal range of motion, non-tender, normal inspection, no pedal edema Back: normal inspection, no CVA tenderness Neurologic/Psychiatric: five piece expansion maker hand II-XII nml as tested, no motor/sensory deficits, alert, normal mood/affect, oriented x 3 Skin: normal color, warm/dry Progress/Results/Core Measures Results/Orders My Orders Orders - BLAKE FLORES Urinalysis (10/01/21 12:47) Vital Signs/I&O 8/2/22 8/2/22 12:47 13:22 Temp 37.0 37.0 Pulse 92 92 Resp 20 20 B/P (MAP) 172/103 (126) 172/103 Blood Pressure Mean: 126 Departure Communication (PCP) Patient with abdominal pain for the past 6 weeks. States appears to be worse on empty stomach. Takes Pepto-Bismol and Mylanta with improvement. Denies any urinary symptoms. States he had outpatient lab work that was unremarkable at [facility]. Refused any imaging or lab work at this time. Discussed with patient without lab work not able to rule out other potential etiologies. He had no previous abdominal tenderness. Reports of bloating at times. Discussed this may be gastritis versus ulcer versus food intolerance versus infectious. Denies any dark tarry stool bloody stool or mucousy stool. No history infla mmatory bowel disease. Discussed starting a PPI. Continue with Mylanta. Recommend following up with GI for further evaluation. If this continues may need further GI follow-up with EGD or colonoscopy. Discussed diet changes. Return precaution were discussed with patient. Impression Primary Impression: Abdominal pain Disposition: 01 HOME, SELF-CARE Condition: Stable Departure-Patient Inst. Decision time for Depature: 13:14 Referrals: KAM HENDRICKSON,LOCAL PHYSICIAN (PCP) Primary Care Physician Patient Instructions: Abdominal Pain, Adult ED Scripts Pantoprazole Sodium (Protonix) 40 Mg Tablet. 40 MG PO DAILY, #20 TAB Prov: BLAKE FLORES 10/01/21 BLAKE FLORES Oct 01, 2021 13:16
[2021-10-01 13:22] VITALS: BP 172/103
== END 2021-10-01 13:22 | disposition home or self-care (01) ==
LOC: EDUNIT# 12:29 → ER 12:30
DX: R10.12 Left upper quadrant pain (principal); Z86.16 Personal history of COVID-19; Z28.310 Unvaccinated for COVID-19
CPT/HCPCS: 99281

== ENCOUNTER 2021-10-03 08:43 | Emergency (ER) | payer MEDICARE ==
[~2021-10-03] VITALS: Ht 186 cm; Wt 81.0 kg
[~2021-10-03 08:43] MED LIST changes: +PANT40TA2 PO
--- NOTE | 2021-10-03 08:58 | ED GU-Male ---
General Stated Complaint: L TESTICLE SWELLING/HERNIA History of Present Illness Date Seen by Provider: Oct 03, 2021 Time Seen by Provider: 08:55 Initial Comments 66-year-old male is here with complaints of left testicular swelling and left groin swelling that worsened yesterday evening and today morning. Patient states that the swelling gets worse when he stands or strains. Today he noticed that it is extending into his scrotum and his scrotum is enlarged. Denies pain in the scrotum or inguinal region. Denies fever, nausea and vomiting, diarrhea, hematuria, urethral discharge. Allergies and Home Medications Allergies Coded Allergies: No Known Drug Allergies (Unverified , 05/16/20) Patient Home Medication List Home Medication List Reviewed: Yes Apixaban (Eliquis) 5 Mg Tablet, 5 MG PO BID Prescribed by: MELIZA FONSECA on 05/17/20 1043 Diltiazem HCl (Diltiazem 24Hr ER) 240 Mg Cap.er.24h, 240 MG PO DAILY Prescribed by: MELIZA FONSECA on 05/17/20 1043 Diltiazem HCl (Cardizem Cd) 360 Mg Cap.er.24h, 360 MG PO DAILY Prescribed by: KALI DASH on 05/19/20 2146 Pantoprazole Sodium (Protonix) 40 Mg Tablet.dr, 40 MG PO DAILY Prescribed by: KEVIN CHACON on 10/01/21 1316 Review of Systems Review of Systems Constitutional: no symptoms reported EENTM: no symptoms reported Respiratory: no symptoms reported Cardiovascular: no symptoms reported Gastrointestinal: no symptoms reported Genitourinary: other (testicular swelling) Musculoskeletal: no symptoms reported Skin: no symptoms reported Psychiatric/Neurological: No Symptoms Reported Endocrine: No Symptoms Reported Hematologic/Lymphatic: No Symptoms Reported Past Vyiiuak-Wcsxyj-Miiemw Hx Seasonal Allergies Seasonal Allergies: No Past Medical History Surgery/Hospitalization HX: AFIB, COVID, Surgeries: Yes (Left eye due to glaucoma and strabismus) Respiratory: No Cardiac: Yes (Atrial flutter DX 05/16/20) Atrial Fibrillation Neurological: No Genitourinary: No Gastrointestinal: Yes (UMBILICAL HERNIA--NO SURGERY) Musculoskeletal: No Endocrine: No HEENT: Yes (Strabismus) Glaucoma Cancer: No Psychosocial: No Integumentary: No Blood Disorders: No Adverse Reaction/Blood Tranf: No Physical Exam Vital Signs Vital Signs - First Documented 10/03/21 08:59 Temp 36.9 Pulse 75 Resp 20 B/P (MAP) 179/102 (127) Pulse Ox 100 O2 Delivery Room Air Capillary Refill : Height, Weight, BMI Height: '" Weight: lbs. oz. kg; 29.00 BMI Method: General Appearance: WD/WN, no apparent distress HEENT: PERRL/EOMI Cardiovascular: regular rate, rhythm Respiratory: lungs clear Gastrointestinal: normal bowel sounds, non tender, soft, other (left inguinal mass extending into scrotum, nontender) Male: other (inguinal and left scrotal swelling) Extremities: normal range of motion Neurologic/Psychiatric: alert, normal mood/affect, oriented x 3 Skin: normal color Lymphatic: no adenopathy Focused Exam Lactate Level 10/03/21 09:15: Lactic Acid Level 1.16 Lactic Acid Level Laboratory Tests Test 10/03/21 09:15 Lactic Acid Level 1.16 MMOL/L (0.50-2.00) Progress/Results/Core Measures Suspected Sepsis SIRS Temperature: Pulse: Respiratory Rate: Laboratory Tests 10/03/21 09:15: White Blood Count 6.8 Blood Pressure / Mean: 10/03/21 09:15: Lactic Acid Level 1.16 Laboratory Tests 10/03/21 09:15: Creatinine 0.93, Platelet Count 232, Total Bilirubin 2.2H Results/Orders Lab Results Laboratory Tests Test 10/03/21 09:15 10/03/21 09:51 Range/Units White Blood Count 6.8 4.3-11.0 10^3/uL Red Blood Count 4.93 4.30-5.52 10^6/uL Hemoglobin 16.0 13.3-17.7 g/dL Hematocrit 47 40-54 % Mean Corpuscular Volume 95 80-99 fL Mean Corpuscular Hemoglobin 33 25-34 pg Mean Corpuscular Hemoglobin Concent 34 32-36 g/dL Red Cell Distribution Width 11.9 10.0-14.5 % Platelet Count 232 130-400 10^3/uL Mean Platelet Volume 9.9 9.0-12.2 fL Immature Granulocyte % (Auto) 0 % Neutrophils (%) (Auto) 76 H 42-75 % Lymphocytes (%) (Auto) 12 12-44 % Monocytes (%) (Auto) 11 0-12 % Eosinophils (%) (Auto) 1 0-10 % Basophils (%) (Auto) 0 0-10 % Neutrophils # (Auto) 5.1 1.8-7.8 10^3/uL Lymphocytes # (Auto) 0.8 L 1.0-4.0 10^3/uL Monocytes # (Auto) 0.8 0.0-1.0 10^3/uL Eosinophils # (Auto) 0.0 0.0-0.3 10^3/uL Basophils # (Auto) 0.0 0.0-0.1 10^3/uL Immature Granulocyte # (Auto) 0.0 0.0-0.1 10^3/uL Sodium Level 137 135-145 MMOL/L Potassium Level 3.9 3.6-5.0 MMOL/L Chloride Level 104 98-107 MMOL/L Carbon Dioxide Level 26 21-32 MMOL/L Anion Gap 7 5-14 MMOL/L Blood Urea Nitrogen 16 7-18 MG/DL Creatinine 0.93 0.60-1.30 MG/DL Estimat Glomerular Filtration Rate 91 BUN/Creatinine Ratio 17 Glucose Level 117 H 70-105 MG/DL Lactic Acid Level 1.16 0.50-2.00 MMOL/L Calcium Level 9.4 8.5-10.1 MG/DL Corrected Calcium 9.1 8.5-10.1 MG/DL Total Bilirubin 2.2 H 0.1-1.0 MG/DL Aspartate Amino Transf (AST/SGOT) 17 5-34 U/L Alanine Aminotransferase (ALT/SGPT) 28 0-55 U/L Alkaline Phosphatase 50 40-136 U/L Total Protein 7.4 6.4-8.2 GM/DL Albumin 4.4 3.2-4.5 GM/DL Urine Color YELLOW Urine Clarity CLEAR Urine pH 6.5 5-9 Urine Specific Jackman <=1.005 1.016-1.022 Urine Protein NEGATIVE NEGATIVE Urine Glucose (UA) NEGATIVE NEGATIVE Urine Ketones NEGATIVE NEGATIVE Urine Nitrite NEGATIVE NEGATIVE Urine Bilirubin NEGATIVE NEGATIVE Urine Urobilinogen 0.2 < = 1.0 MG/DL Urine Leukocyte Esterase 1+ H NEGATIVE Urine RBC (Auto) NEGATIVE NEGATIVE Urine RBC 0-2 /HPF Urine WBC 5-10 H /HPF Urine Squamous Epithelial Cells 10-25 H /HPF Urine Crystals NONE /LPF Urine Bacteria TRACE /HPF Urine Casts NONE /LPF Urine Mucus NEGATIVE /LPF Urine Culture Indicated YES Urine Opiates Screen NEGATIVE NEGATIVE Urine Oxycodone Screen NEGATIVE NEGATIVE Urine Methadone Screen NEGATIVE NEGATIVE Urine Propoxyphene Screen NEGATIVE NEGATIVE Urine Barbiturates Screen NEGATIVE NEGATIVE Ur Tricyclic Antidepressants Screen NEGATIVE NEGATIVE Urine Phencyclidine Screen NEGATIVE NEGATIVE Urine Amphetamines Screen NEGATIVE NEGATIVE Urine Methamphetamines Screen NEGATIVE NEGATIVE Urine Benzodiazepines Screen NEGATIVE NEGATIVE Urine Cocaine Screen NEGATIVE NEGATIVE Urine Cannabinoids Screen NEGATIVE NEGATIVE My Orders Orders - LLOYD NIELSON MD Us Scrotum (Testicle) [id number] (10/03/21 08:55) Cbc With Automated Diff (10/03/21 08:56) Comprehensive Metabolic Panel (10/03/21 08:56) Drug Screen Stat (Urine) (10/03/21 08:56) Lactic Acid Analyzer (10/03/21 08:56) Ua Culture If Indicated (10/03/21 08:56) Neis Omar Dna Urine Test (10/03/21 08:56) Chlamydia Trachomatis Urine (10/03/21 08:57) Urine Culture (10/03/21 09:51) Vital Signs/I&O 10/03/21 08:59 Temp 36.9 Pulse 75 Resp 20 B/P (MAP) 179/102 (127) Pulse Ox 100 O2 Delivery Room Air Capillary Refill : Progress Note : Progress Note 1. LEFT INGUINAL HERNIA EXTENDING INTO SCROTUM: - U/S SCROTUM/ INGUINAL AREA: Left testis is obscured by multiple loops of bow el, likely secondary to an inguinal hernia. - Labs: unremarkable - Surgery consult: discussed via phone. Pt to follow up in surgery clinic on 10/07/21 at 10:30 AM -The patient was seen in the ED, and treated appropriately to presentation at a specific point in time. Patient is informed that there is a possibility that disease and illness can evolve and change in acuity rapidly or slowly after patient is discharged from the ER. Precautionary advice given to the patient for immediate return to ER if symptoms worsen or do not resolve, and to seek emergency care sooner rather than later. Pt also advised on the importance of PCP follow up and compliance with management and follow up plan with PCP and/or specialist, as this is part of the management plan. Pt verbally expressed understanding. Diagnostic Imaging Diagonstic Imaging: Ultrasound Plain Films/CT/US/NM/MRI: other Comments [facility] [place], [place] NAME: HARSH MITCHELL [facility] REC#: [id number] PT STATUS: REG ER : 1955 PHYSICIAN: LLOYD NIELSON MD ADMIT DATE: 10/03/21/ER Draft Date of Exam:10/03/21 US SCROTUM (Testicle) [id number] EXAMINATION: US Scrotum w/ Duplex TECHNIQUE: Multiple Real-time grayscale images were obtained of the scrotum in various projections bilaterally. Color Doppler images were also obtained. HISTORY: Scrotal swelling. COMPARISON: None available. FINDINGS: The right testis has a homogeneous echogenic appearance without intratesticular mass or hyperemia and measures 2.9 x 2.9 x 2.7 cm. The right epididymis is normal. No extratesticular mass. A small right varicocele is present. No hydrocele. Normal Doppler flow is seen within the right testis. The left testis is obscured by loops of bowel within the scrotal sac. IMPRESSION: 1. Left testis is obscured by multiple loops of bowel, likely secondary to an inguinal hernia. 2. Unremarkable appearance of the right testis with a small right varicocele. Dictated on workstation # [id number] Dict: 10/03/21 1019 Trans: 10/03/21 1023 [id number] Interpreted by: KIRILL HANSEN DO Electronically signed by: Time of Consult: 10:30 Consults Consults : Consults Notes Discussed with Dr Day , surgeon, on the phone. Pt to follow up with SUrgery clinic on Thursday for elective surgery planning Departure Impression Primary Impression: Left inguinal hernia Disposition: 01 HOME, SELF-CARE Condition: Stable Departure-Patient Inst. Referrals: KAM HENDRICKSON DO NO,LOCAL PHYSICIAN (PCP) Primary Care Physician Patient Instructions: Inguinal and Femoral (Groin) Hernias, Groin Hernia (DC) Add. Discharge Instructions: Pt to follow up in surgery clinic on 10/07/21 at 10:30 AM LLOYD NIELSON MD Oct 03, 2021 08:58
[2021-10-03 09:28] LABS: BASOPHILS % (AUTO) 0 % (0-10); EOSINOPHILS % (AUTO) 1 % (0-10); HEMATOCRIT 47 % (40-54); LYMPHOCYTES # (AUTO) 0.8 10^3/uL (1.0-4.0); LYMPHOCYTES % (AUTO) 12 % (12-44); MEAN CORPUSCULAR HEMOGLOBIN 33 pg (25-34); MEAN CORPUSCULAR HGB CONC 34 g/dL (32-36); MEAN CORPUSCULAR VOLUME 95 fL (80-99); MEAN PLATELET VOLUME 9.9 fL (9.0-12.2); MONOCYTES # (AUTO) 0.8 10^3/uL (0.0-1.0); MONOCYTES % (AUTO) 11 % (0-12); NEUTROPHILS # (AUTO) 5.1 10^3/uL (1.8-7.8); NEUTROPHILS % (AUTO) 76 % (42-75); PLATELET COUNT 232 10^3/uL (130-400); WHITE BLOOD COUNT 6.8 10^3/uL (4.3-11.0)
[2021-10-03 09:39] LABS: ALBUMIN 4.4 GM/DL (3.2-4.5); POTASSIUM 3.9 MMOL/L (3.6-5.0)
[2021-10-03 09:40] LABS: CALCIUM 9.4 MG/DL (8.5-10.1)
[2021-10-03 09:41] LABS: TOTAL PROTEIN 7.4 GM/DL (6.4-8.2)
[2021-10-03 09:43] LABS: BILIRUBIN,TOTAL 2.2 MG/DL (0.1-1.0)
[2021-10-03 09:45] LABS: CREATININE SERUM 0.93 MG/DL (0.60-1.30)
[2021-10-03 10:04] LABS: BILIRUBIN,URINE NEGATIVE (NEGATIVE); CLARITY,URINE CLEAR; COLOR,URINE YELLOW; GLUCOSE, URINE (UA) NEGATIVE (NEGATIVE); KETONES,URINE NEGATIVE (NEGATIVE); LEUKOCYTE ESTERASE ,URINE 1+ (NEGATIVE); NITRITE,URINE NEGATIVE (NEGATIVE); PH,URINE 6.5 (5-9); PROTEIN,URINE NEGATIVE (NEGATIVE)
[2021-10-03 10:21] LABS: RBC,URINE 0-2 /HPF
[2021-10-03 10:22] LABS: BACTERIA,URINE TRACE /HPF
--- NOTE | 2021-10-03 10:24 | Diagnostic Imaging Report ---
EXAMINATION: US Scrotum w/ Duplex TECHNIQUE: Multiple Real-time grayscale images were obtained of the scrotum in various projections bilaterally. Color Doppler images were also obtained. HISTORY: Scrotal swelling. COMPARISON: None available. FINDINGS: The right testis has a homogeneous echogenic appearance without intratesticular mass or hyperemia and measures 2.9 x 2.9 x 2.7 cm. The right epididymis is normal. No extratesticular mass. A small right varicocele is present. No hydrocele. Normal Doppler flow is seen within the right testis. The left testis is obscured by loops of bowel within the scrotal sac. IMPRESSION: 1. Left testis is obscured by multiple loops of bowel, likely secondary to an inguinal hernia. 2. Unremarkable appearance of the right testis with a small right varicocele. Dictated by: Dictated on workstation # [id number]
[2021-10-03 10:31] LABS: BENZODIAZEPINES SCREEN URINE NEGATIVE (NEGATIVE); COCAINE SCREEN URINE NEGATIVE (NEGATIVE)
[2021-10-03 10:32] LABS: AMPHETAMINE SCREEN, URINE NEGATIVE (NEGATIVE); BARBITURATE SCREEN URINE NEGATIVE (NEGATIVE); CANNABINOID SCREEN, URINE NEGATIVE (NEGATIVE); METHADONE STAT NEGATIVE (NEGATIVE); OPIATE SCREEN URINE NEGATIVE (NEGATIVE); OXYCODONE STAT NEGATIVE (NEGATIVE); PROPOXYPHENE STAT NEGATIVE (NEGATIVE); TRICYCLIC ANTIDEPRESSANTS SCRE NEGATIVE (NEGATIVE)
[2021-10-03 10:58] VITALS: BP 176/105
== END 2021-10-03 10:58 | disposition home or self-care (01) ==
LOC: EDUNIT# 08:43 → ER 08:45
DX: K40.90 Unilateral inguinal hernia, without obstruction or gangrene, not specified as recurrent (principal); Z86.16 Personal history of COVID-19; Z28.310 Unvaccinated for COVID-19
CPT/HCPCS: 36415; 76870; 80053; 80306; 81000; 83605; 85025; 87088; 87491; 87591

== ENCOUNTER 2021-10-20 09:28 | Emergency (ER) | payer MEDICARE ==
[2021-10-20] MEDS ORDERED: ONDA4TAB11 PO (10:05)
--- NOTE | 2021-10-20 10:05 | ED General ---
General Chief Complaint: Abdominal/GI Problems Stated Complaint: ABD PAIN - NAUSEA Nursing Triage Note: PT AMB TO [facility] 6 WITH C/O NAUSEA WORSENING OVER LAST TWO DAYS AND HE IS WORRIED THAT HIS HERNIA IS CAUSING PROBLEMS. PT SAID HE NAUSEA GETS BETTER AFTER DRINKING AN ENSURE Source of Information: Patient Exam Limitations: No Limitations History of Present Illness Date Seen by Provider: Oct 20, 2021 Time Seen by Provider: 09:45 Timing/Duration: 24 Hours Severity: Mild Associated Systoms: Nausea/Vomiting (nausea without vomiting) Allergies and Home Medications Allergies Coded Allergies: No Known Drug Allergies (Unverified , 05/16/20) Patient Home Medication List Home Medication List Reviewed: Yes Apixaban (Eliquis) 5 Mg Tablet, 5 MG PO BID Prescribed by: MELIZA FONSECA on 05/17/20 1043 Diltiazem HCl (Diltiazem 24Hr ER) 240 Mg Cap.er.24h, 240 MG PO DAILY Prescribed by: MELIZA FONSECA on 05/17/20 1043 Diltiazem HCl (Cardizem Cd) 360 Mg Cap.er.24h, 360 MG PO DAILY Prescribed by: KALI DASH on 05/19/20 214 Pantoprazole Sodium (Protonix) 40 Mg Tablet.dr, 40 MG PO DAILY Prescribed by: KEVIN CHACON on 10/01/21 1316 Review of Systems Review of Systems Constitutional: see HPI EENTM: no symptoms reported Respiratory: no symptoms reported Cardiovascular: no symptoms reported Gastrointestinal: nausea Genitourinary: other (hernia pain) Musculoskeletal: no symptoms reported Skin: no symptoms reported All Other Systems Reviewed Negative Unless Noted: Yes Past Ybfujyc-Vjtcup-Zmatgf Hx Patient Social History Tobacco Use?: No Use of E-Cig and/or Vaping dev: No Substance use?: No Alcohol Use?: No Pt feels they are or have been: No Seasonal Allergies Seasonal Allergies: No Past Medical History Surgery/Hospitalization HX: HERNIA, AFIB, COVID, TONSILS OUT, EYE SURGERY Surgeries: Yes (Left eye due to glaucoma and strabismus) Respiratory: No Cardiac: Yes (Atrial flutter DX 05/16/20) Atrial Fibrillation Neurological: No Genitourinary: No Gastrointestinal: Yes (UMBILICAL HERNIA--NO SURGERY) Musculoskeletal: No Endocrine: No HEENT: Yes (Strabismus) Glaucoma Cancer: No Psychosocial: No Integumentary: No Blood Disorders: No Adverse Reaction/Blood Tranf: No Physical Exam Vital Signs Vital Signs - First Documented 10/20/21 09:35 Temp 36.0 Pulse 76 Resp 20 B/P (MAP) 174/103 (126) Capillary Refill : Height, Weight, BMI Height: '" Weight: lbs. oz. kg; 23.00 BMI Method: Progress/Results/Core Measures Suspected Sepsis SIRS Temperature: Pulse: 76 Respiratory Rate: 20 Blood Pressure 174 /103 Mean: 126 Results/Orders Vital Signs/I&O 10/20/21 09:35 Temp 36.0 Pulse 76 Resp 20 B/P (MAP) 174/103 (126) Capillary Refill : Blood Pressure Mean: 126 Departure Impression Primary Impression: Nausea alone Additional Impression: Left inguinal hernia Disposition: 01 HOME, SELF-CARE Condition: Stable Departure-Patient Inst. Decision time for Depature: 10:04 Referrals: [facility] (PCP/Family) Primary Care Physician Patient Instructions: Groin Hernia (DC) Add. Discharge Instructions: Drink plenty of fluids to stay well-hydrated. This will help keep your stool nice and soft and easier to pass so you are not straining and making the hernia bigger. Zofran/ondansetron 4 mg, 1 tablet every 8 hours as needed for nausea. Keep your follow-up appointment as scheduled with Dr. Ramirez. Return to the emergency department for worsening pain, nausea and vomiting, fever or any other emergent, concerning complaints. Scripts Ondansetron (Ondansetron Odt) 4 Mg Tab.rapdis 4 MG PO Q8H PRN for nausea, #15 TAB Prov: LON LYNCH MD 10/20/21 LON LYNCH MD Oct 20, 2021 10:05
[2021-10-20 10:10] VITALS: BP 172/106
== END 2021-10-20 10:12 | disposition home or self-care (01) ==
LOC: EDUNIT# 09:28 → ER 09:29
DX: K40.90 Unilateral inguinal hernia, without obstruction or gangrene, not specified as recurrent (principal); R11.0 Nausea
CPT/HCPCS: 99281

== ENCOUNTER → 2021-10-28 | Outpatient (CLI) | payer MEDICARE ==
[~2021-10-28] MED LIST changes: +ACHD5005 PO; +DOCU-143 PO; +ONDA4TAB11 PO
== END ==
LOC: PREOP 05:30
PROVIDERS: ATTEND Surgery
DX: Z01.818 Encounter for other preprocedural examination (principal); K42.9 Umbilical hernia without obstruction or gangrene; K40.90 Unilateral inguinal hernia, without obstruction or gangrene, not specified as recurrent

== ENCOUNTER 2021-10-30 06:10 | Day surgery (SDC) | payer MEDICARE ==
[~2021-10-30] VITALS: Ht 188 cm; Wt 82.0 kg
[2021-10-30] VITALS (11 sets, daily range): BP systolic 111–176; BP diastolic 57–105
[~2021-10-30 06:10] MED LIST changes: -ACHD5005 PO; -DOCU-143 PO
[2021-10-30] MEDS: LACTATED RINGERS 1,000 ML IV PRN ×3 (06:55→10:34)
[2021-10-30] MEDS ORDERED: ceFAZolin 2 GM IV Premixed 50 ML ONE (07:05)
[2021-10-30] MEDS ORDERED: LIDOCAINE/EPI 2% 1:200,00 (XYLOCAINE) 20 ML VIAL ONE (07:14)
[2021-10-30] MEDS ORDERED: ceFAZolin INJECTION 2,000 MG in NS (IVPB) 50 ML IV ONE (07:15)
[2021-10-30] MEDS ORDERED: MIDAZOLAM 2 MG/2 ML (VERSED) VIAL ONE (07:20)
[2021-10-30] MEDS ORDERED: proPOfol 200 MG/20 ML (DIPRIVAN) VIAL IV ONE (07:20)
[2021-10-30] MEDS ORDERED: ONDANSETRON 4 MG/2 ML (SDV) Z0FRAN ONE (07:20)
[2021-10-30] MEDS ORDERED: fentaNYL INJ 100 MCG/2 ML AMP ONE (07:20)
[2021-10-30] MEDS ORDERED: SEVOFLURANE (ULTANE) 15 ML INHAL SOLN ONE ×3 (07:20→09:45)
--- NOTE | 2021-10-30 08:00 | Progress Note-Pre Operative ---
Pre-Operative Progress Note Date of Available H&P: Oct 07, 2021 Date H&P Reviewed: Oct 30, 2021 Time H&P Reviewed: 07:45 History & Physical: H&P Reviewed, Patient Examed, No changes noted Pre-Operative Diagnosis: left inguinal hernia, umbilical hernia KAM HENDRICKSON DO Oct 30, 2021 08:00
[2021-10-30] MEDS ORDERED: ROCURONIUM 50 MG/5 ML (ZEMURON) VIAL IV ONE ×2 (08:46→09:15)
[2021-10-30] MEDS ORDERED: LIDOCAINE PF 1% 5 ML (XYLOCAINE) AMP ONE (08:53)
[2021-10-30] MEDS ORDERED: GLYCOPYRROLATE 0.2 MG/ML (ROBINUL) 2 ML VIAL ONE (10:00)
[2021-10-30] MEDS ORDERED: NEOSTIGMINE (BLOXIVERZ ) 1 MG/1ML 10 ML VIAL ONE (10:00)
[2021-10-30] MEDS ORDERED: ATROPINE INJ 0.4 MG/ML SDV ONE (10:13)
[2021-10-30] MEDS ORDERED: DOCU-143 PO (10:17)
[2021-10-30] MEDS ORDERED: ACHD5005 PO (10:17)
--- NOTE | 2021-10-30 10:18 | Anesthesia-General Post-Op ---
General Patient Condition Mental Status/LOC: Same as Preop Cardiovascular: Satisfactory Nausea/Vomiting: Absent Respiratory: Satisfactory Pain: Controlled Complications: Absent Post Op Complications Complications None Follow Up Care/Instructions Patient Instructions None needed. Anesthesia/Patient Condition Patient Condition Patient is doing well, no complaints, stable vital signs, no apparent adverse anesthesia problems. No complications reported per nursing. ZAY VACA CRNA Oct 30, 2021 10:18
--- NOTE | 2021-10-30 10:19 | Discharge Inst-Simple/Standard ---
Discharge Inst-Standard Discharge Medications New, Converted or Re-Newed RX: Transmitted to Pharmacy Patient Instructions/Follow Up Plan of Care/Instructions/FU: 2weeks munir Activity as Tolerated: No Discharge Diet: Regular Diet Other Inst to Patient Follow up Appt: Make appointment for 2 week. Instructions: No lifting greater than 10 pounds. No strenuous activity. May shower in 24 hours, no tub bath or soaking. Use incentive spirometer at home as directed. No Smoking Skin/Wound Care: You have special glue over your incision that will fall off on it's own. Symptoms to Report: Appetite Changes, Extremity Discoloration, Numbness/Tingling, Swelling Increased, Bleeding Excessive, Eyesight Changes, Pain Increased, Urine Color Change, Constipation(Persistent), Fever over 101 degree F, Pain/Pressure in chest, Urinating Difficulty, Cough Up/Vomit Blood, Heart Beat Irreg/Pounding, Pain/Pressure in jaw, Vaginal Bleeding Increase, Cramps in feet or legs, Lightheadedness, Pain/Pressure in shoulder, Diarrhea(Persistent), Memory Changes Suddenly, Questions/Concerns, Weight gain consecutive days, Dizziness/Fainting, Nausea/Vomiting, Shortness of Breath, Weight gain over 2 pounds If questions or concerns contact your physician Or seek help at emergency department. KAM HENDRICKSON DO Oct 30, 2021 10:18
[2021-10-30] MEDS ORDERED: fentaNYL INJ 100 MCG/2 ML AMP IVP ONE (10:30)
[2021-10-30] MEDS ORDERED: ONDANSETRON 4 MG/2 ML (SDV) Z0FRAN IVP PRN (10:30)
[2021-10-30] MEDS ORDERED: morphine INJ 10 MG/ML 1ML (SYR OR VIAL) IVP ONE (10:30)
[2021-10-30] MEDS ORDERED: MEPERIDINE (DEMEROL) INJ 50 MG/ML IVP ONE (10:30)
[2021-10-30] MEDS ORDERED: HYDROcodone/APAP 5 MG/325 MG (LORTAB) TAB ONE (11:23)
[2021-10-30] MEDS ORDERED: HYDROcodone/APAP 5 MG/325 MG (LORTAB) TAB PO ONE (11:30)
--- NOTE | 2021-10-31 05:45 | OPERATIVE REPORT ---
DATE OF SERVICE: 10/30/2021 PREOPERATIVE DIAGNOSIS: Left inguinal hernia and umbilical hernia. POSTOPERATIVE DIAGNOSES: Incarcerated left inguinal hernia, cord lipoma and umbilical hernia. PROCEDURE: Open left incarcerated inguinal hernia repair and excision of cord lipoma, laparoscopic incarcerated umbilical hernia repair with mesh. SURGEON: Kam Ramirez DO CALCULATION CLERK: Dr. Day, assisted in retraction, dissection and closure. ANESTHESIA: General. ESTIMATED BLOOD LOSS: Minimal. COMPLICATIONS: None. INDICATIONS: The patient is a 66-year-old male with a large left inguinal hernia and also an umbilical hernia. He understands risks and benefits of procedure and wishes to proceed. Consent was signed in the chart. DESCRIPTION OF PROCEDURE: The patient was taken to the operating suite, was prepped and draped in sterile fashion. Timeout was performed. Local anesthetic was infiltrated in left lower quadrant. An incision was made in left lower quadrant. Cautery was used to dissect down through subcutaneous tissues all the way down to the external oblique, which shows opened down through the external ring. Extremely large hernia contents present, which the hernia sac had to be opened and the hernia contents were started to be brought out, which contained sigmoid colon. The patient had to be brought out, it was incarcerated. Adhesions had to be dissected off and the sigmoid colon was able to be reduced back into the abdomen. The spermatic cord was dissected around and a [place] drain was placed around it. Cord lipoma present, which was excised with cautery. The hernia sac was continued to be divided and mobilized all the way down to the abdominal wall. A 0 Vicryl was placed in a pursestring fashion to close the defect. A mesh was then placed to attach to the Mendoza's ligament, then placed around the spermatic cord and placed under the external oblique fascia. For reinforcement, after it was incorporated around the spermatic cord. The external oblique was then closed using 2-0 Vicryl in a running fashion, recreating the external ring. Subcutaneous tissues were then reapproximated. At this time, the abdomen was then entered in the left upper quadrant and 11 blade scalpel was used to make a small skin incision. Cautery was used to dissect down to the fascia, which was then divided. Muscle was divided. Posterior fascia was divided and the harper trocar was inserted. A pneumoperitoneum was achieved. Under direct visualization of the laparoscope, a 5 mm trocar was placed in the right side of the abdomen also 5 mm trocar was placed in left side of the abdomen. Hernia contents contained omentum that was incarcerated through this area, which had to be bluntly and cautery had dissected off. A #11 blade scalpel was used to make a small stab incision at the hernia site. [place] was then inserted and an Echo Ventralight 4.5 inch mesh was inserted and using the [place], it was grasped and brought out through the midline incision. The balloon was inflated. A SecureStrap Tacker was used to make an outer and inner crown. After the outer crown was made, the balloon was removed and the inner crown was made. This provided adequate coverage. The abdomen was then inspected. No other pathology noted. Maybe a small right inguinal hernia present. The abdomen was then desufflated, the trocars were removed. The 12 mm fascial defect was then closed using 0 Vicryl in [id number] fashion. The skin was then closed with joaquin. The patient tolerated the procedure well without any complications and was taken to recovery room in stable condition. Job ID: [id number] DocumentID: [id number] Dictated Date: 10/30/2021 20:52:22 Multi Sensor Operator Date: 10/31/2021 05:44:47 Dictated By: KAM RAMIREZ DO
== END 2021-10-30 12:10 ==
LOC: SDC 06:10
PROVIDERS: ATTEND Surgery
DX: K40.30 Unilateral inguinal hernia, with obstruction, without gangrene, not specified as recurrent (principal); K42.0 Umbilical hernia with obstruction, without gangrene; D17.6 Benign lipomatous neoplasm of spermatic cord; Z87.891 Personal history of nicotine dependence
CPT/HCPCS: 49507; 49653; 55520; 87081; C1781 ×2

== ENCOUNTER 2021-11-03 09:17 | Emergency (ER) | payer MEDICARE ==
[~2021-11-03] VITALS: Ht 187.9 cm; Wt 72.5 kg
[~2021-11-03 09:17] MED LIST changes: +ACHD5005 PO; +DOCU-143 PO
--- NOTE | 2021-11-03 10:02 | ED General ---
General Chief Complaint: Abdominal/GI Problems Stated Complaint: POST OP 10/30 HERNIA - CONSTIPATION Nursing Triage Note: PT TO RM 3 WITH CC OF CONSTIPATION AND ABD DISCOMFORT. PT REPORTS HERNIA REPAIR SURGERY 10/30/21. LAST BM 10/29/21. PT STATES "IT FEELS LIKE A ROCK IN THERE." PT REPORTS IS PASSING GAS AND HAS SMALL AMOUNT OF LIQUID STOOL. Source of Information: Patient Exam Limitations: No Limitations (JUANA SHAIKH MED STUDENT) History of Present Illness Date Seen by Provider: Nov 03, 2021 Time Seen by Provider: 09:57 Initial Comments Zain Mahan is a 66 yo male who presents for abdominal discomfort. Pt has hx of inguinal hernia repair on 10/31/21 done here at . Pt reports he has not had a BM since Thursday10/29/21. He has taken Dulcolax with no relief. Denies taking any other OTC medications. Pt was prescribed hydrocodone following surgery and states he was taking "4 at a time" the first few days because the pain was so b ad. Later he then told me he was not taking this much and only took them 1 at a time. He has decreased his use of these and last one was taken at midnight last night. Last meal was this morning and he admits to a good appetite since surgery. Pt has concerns of LLQ fullness, but does not admit to significant pain. Pt states he went to [facility] walk in clinic this morning for this issue, but was redirected to this ED. Upon arrival to ED pt passed some liquid, gas and a minimal amount of blood. Pt denies fever, chills, CP, SOA, cough, dysuria, frequency, N/V, weakness, numbness. Timing/Duration: 4-5 Days Severity: Mild Modifying Factors: worse with Movement Associated Systoms: Denies Symptoms (JUANA SHAIKH MED STUDENT) Allergies and Home Medications Allergies Coded Allergies: No Known Drug Allergies (Unverified , 10/30/21) Patient Home Medication List Home Medication List Reviewed: Yes (LON LYNCH MD) Docusate Sodium (Colace) 100 Mg Capsule, 100 MG PO BID Prescribed by: KAM HENDRICKSON on 10/30/21 1017 Hydrocodone/Acetaminophen (Hydrocodone-Acetamin 5-325 mg) 5 Mg-325 Mg Tablet, 1 EACH PO Q4H PRN for PAIN-MODERATE (5-7) Prescribed by: KAM HENDRICKSON on 10/30/21 1018 Ondansetron (Ondansetron Odt) 4 Mg Tab.rapdis, 4 MG PO Q8H PRN for nausea Prescribed by: LON LYNCH on 10/20/21 1005 Pantoprazole Sodium (Protonix) 40 Mg Tablet.dr, 40 MG PO DAILY Prescribed by: KEVIN CHACON on 10/01/21 1316 Review of Systems Review of Systems Constitutional: No chills, No fever EENTM: No blurred vision, No vision loss Respiratory: No cough, No short of breath Cardiovascular: No chest pain, No palpitations Gastrointestinal: No abdominal pain; constipation; No nausea, No vomiting; other (abdominal fullness) Genitourinary: No dysuria, No frequency Musculoskeletal: No back pain, No muscle pain Skin: No lesions, No rash Psychiatric/Neurological: Denies Headache, Denies Numbness, Denies Paresthesia Hematologic/Lymphatic: No Symptoms Reported Immunological/Allergic: no symptoms reported (JUANA SHAIKH) Past Zavifrd-Kuqtze-Upxfsz Hx Patient Social History Tobacco Use?: No Substance use?: No Alcohol Use?: No Pt feels they are or have been: No (JUANA SHAIKH) Immunizations Up To Date Tetanus Booster (TDap): Unknown (JUANA SHAIKH) Seasonal Allergies Seasonal Allergies: No (JUANA SHAIKH) Past Medical History Surgery/Hospitalization HX: HERNIA, AFIB, COVID, TONSILS OUT, EYE SURGERY Surgeries: Yes (Left eye due to glaucoma and strabismus X5) Tonsillectomy Respiratory: No Currently Using CPAP: No Currently Using BIPAP: No Cardiac: Yes (Atrial flutter DX 05/16/20) Atrial Fibrillation Neurological: No Genitourinary: No Gastrointestinal: Yes (UMBILICAL HERNIA--NO SURGERY) Gastroesophageal Reflux Musculoskeletal: No Endocrine: No HEENT: Yes (Strabismus) Glaucoma Cancer: No Psychosocial: No Integumentary: No Blood Disorders: No Adverse Reaction/Blood Tranf: No (JUANA SHAIKH) Physical Exam Vital Signs Vital Signs - First Documented 11/03/21 09:24 Temp 36.3 Pulse 94 Resp 20 B/P (MAP) 175/93 (120) Pulse Ox 95 O2 Delivery Room Air (LON LYNCH MD) Vital Signs Capillary Refill : Less Than 3 Seconds (JUANA SHAIKH MED STUDENT) Height, Weight, BMI Height: '" Weight: lbs. oz. kg; 20.00 BMI Method: General Appearance: No Apparent Distress, WD/WN HEENT: PERRL/EOMI, Pharynx Normal Neck: Full Range of Motion, Normal Inspection Respiratory: Chest Non Tender, Lungs Clear Cardiovascular: Regular Rate, Rhythm, No Murmur Gastrointestinal: Abnormal Bowel Sounds (hyperactive bowel sounds); No Distended, No Guarding; Tenderness (LLQ), Other (surgical incisions with joaquin from hernia repair on 10/31) Back: Normal Inspection, No Vertebral Tenderness Extremity: Normal Inspection, Non Tender, Pedal Edema (mild non pitting edema) Neurologic/Psychiatric: Alert, Oriented x3, Normal Mood/Affect Skin: Normal Color, Warm/Dry Lymphatic: No Adenopathy (JUANA SHAIKH MED STUDENT) Progress/Results/Core Measures Suspected Sepsis SIRS Temperature: Pulse: 94 Respiratory Rate: 20 Blood Pressure 175 /93 Mean: 120 (JUANA SHAIKH STUDENT) Results/Orders My Orders Orders - LON LYNCH MD Bisacodyl Suppository (Dulcolax Supposit (11/03/21 10:30) (LON LYNCH MD) Vital Signs/I&O 11/03/21 11/03/21 09:24 10:41 Temp 36.3 Pulse 94 94 Resp 20 20 B/P (MAP) 175/93 (120) 175/93 Pulse Ox 95 95 O2 Delivery Room Air Room Air (LON LYNCH MD) Vital Signs/I&O Capillary Refill : Less Than 3 Seconds (JUANA SHAIKH MED STUDENT) Blood Pressure Mean: 120 Progress Note : Time: 10:15 Progress Note Rectal exam revealed fecal impaction, unable to remove digitally. Will do suppository here and d/c to home with advice to use mag citrate and fleet enema's to relieve fecal impaction. Advised pt to avoid opioids if possible as these are the cause for his constipation. (JUANA SHAIKH MED STUDENT) Progress Note : Time: 10:28 Progress Note Patient seen and evaluated by me, 66-year-old approximately 4 to 5 days postop hernia repair. Complaining of no bowel movement in 5 days. Significant urgency to have a bowel movement. Sounds like he has been overtaking his hydrocodone without stool softeners. He has tried some minimal qokq-dqk-fcgzmiy medications without relief. No problems with urination. No fevers or chills. No concerns with the surgical site. Physical exam remarkable for copious amounts of very hard stool in the rectal vault on digital rectal. Trace Hemoccult positive. No gross blood. No obvious rectal tears. Patient is counseled on magnesium citrate, suppositories and pcgt-qmd-lqwdqjx enemas. He has been ambulatory back and forth to the bathroom multiple times. Return precautions provided. (LON LYNCH MD) Departure Impression Primary Impression: Constipation Qualified Codes: K59.00 - Constipation, unspecified Disposition: HOME, SELF-CARE Condition: Stable Departure-Patient Inst. Decision time for Depature: 10:32 (LON LYNCH MD) Referrals: [facility] [place] (PCP/Family) Primary Care Physician Patient Instructions: Constipation, Adult (DC) Add. Discharge Instructions: Take magnesium citrate liquid and fleet enema's to relieve constipation. Avoid opioids/hydrocodone to prevent recurrence. Drink plenty of fluids to stay well hydrated. Follow up with PCP if symptoms worsen. Keep your follow up appointments with your surgeon. Verification and Attestation of Medical Student E/M Service A medical student performed and documented this service in my presence. I reviewed and verified all information documented by the medical student and made modifications to such information, when appropriate. I personally performed the physical exam and medical decision making. Lon Lynch, Nov 07, 2021,06:20 (LON LYNCH MD) JUANA SHAIKH A MED STUDENT Nov 03, 2021 10:02 LON LYNCH MD Nov 03, 2021 10:33
[2021-11-03] MEDS ORDERED: BISACODYL 10 MG SUPP (DULCOLAX) PR ONE (10:30)
[2021-11-03 10:41] VITALS: BP 175/93
== END 2021-11-03 10:41 | disposition home or self-care (01) ==
LOC: EDUNIT# 09:17 → ER 09:18
DX: K59.00 Constipation, unspecified (principal); Z28.310 Unvaccinated for COVID-19
CPT/HCPCS: 99281

== ENCOUNTER 2021-11-04 00:28 | Emergency (ER) | payer MEDICARE ==
[~2021-11-04] VITALS: Ht 188 cm; Wt 72.5 kg
[2021-11-04] MEDS ORDERED: PHENAZOPYRIDINE 100 MG (PYRIDIUM) TABLET PO ONE (01:15)
[2021-11-04 01:32] LABS: BASOPHILS % (AUTO) 0 % (0-10); EOSINOPHILS % (AUTO) 0 % (0-10); HEMATOCRIT 39 % (40-54); HEMOGLOBIN 13.7 g/dL (13.3-17.7); LYMPHOCYTES # (AUTO) 0.6 10^3/uL (1.0-4.0); LYMPHOCYTES % (AUTO) 4 % (12-44); MEAN CORPUSCULAR HEMOGLOBIN 32 pg (25-34); MEAN CORPUSCULAR HGB CONC 35 g/dL (32-36); MEAN CORPUSCULAR VOLUME 90 fL (80-99); MEAN PLATELET VOLUME 9.3 fL (9.0-12.2); MONOCYTES # (AUTO) 1.4 10^3/uL (0.0-1.0); MONOCYTES % (AUTO) 10 % (0-12); NEUTROPHILS # (AUTO) 12.5 10^3/uL (1.8-7.8); NEUTROPHILS % (AUTO) 85 % (42-75); PLATELET COUNT 308 10^3/uL (130-400); WHITE BLOOD COUNT 14.6 10^3/uL (4.3-11.0)
[2021-11-04 01:38] LABS: ALBUMIN 4.2 GM/DL (3.2-4.5); POTASSIUM 3.8 MMOL/L (3.6-5.0)
[2021-11-04 01:40] LABS: CALCIUM 9.4 MG/DL (8.5-10.1)
[2021-11-04 01:41] LABS: TOTAL PROTEIN 7.4 GM/DL (6.4-8.2)
[2021-11-04 01:43] LABS: BILIRUBIN,TOTAL 4.6 MG/DL (0.1-1.0)
[2021-11-04 01:44] LABS: CREATININE SERUM 0.84 MG/DL (0.60-1.30)
[2021-11-04 02:03] LABS: ERYTHROCYTE SEDIMENTATION RATE 18 MM/HR (0-30)
[2021-11-04 02:04] LABS: LYMPHOCYTES % (MANUAL) 6 %; METAMYELOCYTES % 1 %; MONOCYTES % (MANUAL) 5 %; NEUTROPHILS % (MANUAL) 88 %
[2021-11-04 02:05] LABS: ELLIPT/OVALOCYTES SLIGHT
[2021-11-04] MEDS ORDERED: LIDOCAINE UROJET 2% GEL 10 ML PKG ONE (02:14)
[2021-11-04] MEDS ORDERED: LIDOCAINE UROJET 2% GEL 10 ML PKG TOP ONE (02:15)
[2021-11-04] MEDS ORDERED: fentaNYL INJ 100 MCG/2 ML AMP IVP STA (02:47)
[2021-11-04] MEDS ORDERED: LORazepam 0.5 MG (ATIVAN) TABLET PO STA ×2 (02:47→05:29)
[2021-11-04] MEDS ORDERED: BELLADONNA ALK/OPIUM (B & O) 30 MG SUPP PR ONE (03:45)
[2021-11-04 04:48] LABS: BILIRUBIN,URINE NEGATIVE (NEGATIVE); CLARITY,URINE CLOUDY; COLOR,URINE YELLOW; GLUCOSE, URINE (UA) NEGATIVE (NEGATIVE); KETONES,URINE 1+ (NEGATIVE); LEUKOCYTE ESTERASE ,URINE 2+ (NEGATIVE); NITRITE,URINE NEGATIVE (NEGATIVE); PROTEIN,URINE TRACE (NEGATIVE)
[2021-11-04 04:54] LABS: BACTERIA,URINE LARGE /HPF; RBC,URINE 0-2 /HPF; SQUAMOUS EPITHELIAL CELL,UR 0-2 /HPF
[2021-11-04] MEDS ORDERED: cefTRIAXone 1 GM PRE-MIX 50 ML IV STA (05:01)
--- NOTE | 2021-11-04 05:04 | ED GU-Male ---
General Chief Complaint: - Reproductive Stated Complaint: BLADDER "BURNING",FEELING FAINT,FEVER Nursing Triage Note: Pt ambulates to ED 5 with c/o bladder burning and "feeling like it's on fire" Pt reports it has been doing this off and on since hernia surgery Thursday. States the more water he drinks, the harder it is to pee. Pt reports he has drank approximately 1/2 to 3/4 gallon in the last 3 hours and cannot pee. He attempted to urinate in a collection cup upon arrival, but nothing is in container. Source: patient (PT IS A VERY DIFFICULT HISTORIAN), old records History of Present Illness Date Seen by Provider: Nov 04, 2021 Time Seen by Provider: 00:55 Initial Comments PT ARRIVES VIA POV FROM HOME C/O "BLADDER BURNING" AND "FEELING LIKE IT'S ON FIRE" HAS NOT BEEN ABLE TO URINATE FOR THE LAST FEW HOURS, ONLY A FEW DROPS. STATES IT LOOKED LIKE IT MIGHT HAVE HAD SOME BLOOD IN IT WELL PT HAD OPEN LEFT INGUINAL HERNIA REPAIR AND UMBILICAL HERNIA REPAIR ON 10/30/[address] HENDRICKSON STATES THE SURGICAL SITES ARE FINE WAS HERE IN ER EARLIER TODAY FOR CONSTIPATION SINCE HE HAD SURGERY PT STATES HE HAS NOW HAD 4 BM'S SINCE HE LEFT HER EARLIER TODAY SINCE THEN, HE HAS DEVELOPED URINARY SYMPTOMS. HAS NOT TAKEN ANYTHING FOR PAIN TODAY, STATES HE HAS OXYCODONE, BUT HE DID NOT WANT TO TAKE ANY DUE TO IT CAUSING CONSTIPATION PROBLEMS NO NAUSEA/VOMITING STATES HE HAS BEEN DRINKING ALOT OF FLUIDS AND HAS DRANK 3/4 GALLON OF FLUIDS IN THE LAST 3 HOURS AND HAS NOT BEEN ABLE TO URINATE. PT IS ON ELIQUIS FOR ATRIAL FIBRILLATION AND STARTED TAKING IT AGAIN A DAY OR SO AFTER SURGERY. PT STATES THIS IS THE ONLY MEDICATION HE IS TAKING. Allergies and Home Medications Allergies Coded Allergies: No Known Drug Allergies (Unverified , 10/30/21) Patient Home Medication List Home Medication List Reviewed: Yes Docusate Sodium (Colace) 100 Mg Capsule, 100 MG PO BID Prescribed by: KAM HENDRICKSON on 10/30/21 1017 Hydrocodone/Acetaminophen (Hydrocodone-Acetamin 5-325 mg) 5 Mg-325 Mg Tablet, 1 EACH PO Q4H PRN for PAIN-MODERATE (5-7) Prescribed by: KAM HENDRICKSON on 10/30/21 1018 Ondansetron (Ondansetron Odt) 4 Mg Tab.rapdis, 4 MG PO Q8H PRN for nausea Prescribed by: LON LYNCH on 10/20/21 1005 Pantoprazole Sodium (Protonix) 40 Mg Tablet.dr, 40 MG PO DAILY Prescribed by: KEVIN CHACON on 10/01/21 1316 Discontinued Medications Apixaban (Eliquis) 5 Mg Tablet, 5 MG PO BID Prescribed by: MELIZA FONSECA on 05/17/20 1043 Review of Systems Review of Systems Constitutional: no symptoms reported Respiratory: no symptoms reported Cardiovascular: no symptoms reported Gastrointestinal: see HPI Genitourinary: see HPI Musculoskeletal: no symptoms reported Skin: no symptoms reported Psychiatric/Neurological: No Symptoms Reported Endocrine: No Symptoms Reported Hematologic/Lymphatic: No Symptoms Reported Past Wunbcqt-Aygusa-Wlieta Hx Patient Social History Tobacco Use?: Yes Tobacco type used: Cigarettes Smoking Status: Former Smoker Use of E-Cig and/or Vaping dev: No Substance use?: Yes Substance type: Marijuana Additional substance use comme: CBD OIL Alcohol Use?: Yes Alcohol type: Beer, Hard Liquor Alcohol Frequency: Daily Immunizations Up To Date Tetanus Booster (TDap): Unknown First/Initial COVID19 Vaccinat: None Seasonal Allergies Seasonal Allergies: No Past Medical History Surgery/Hospitalization HX: HERNIA, AFIB, COVID, TONSILS OUT, EYE SURGERY Surgeries: Yes (Left eye due to glaucoma and strabismus X5) Abdominal, Tonsillectomy Respiratory: No Currently Using CPAP: No Currently Using BIPAP: No Cardiac: Yes (Atrial flutter DX 05/16/20) Atrial Fibrillation Neurological: No Genitourinary: No Gastrointestinal: Yes (UMBILICAL AND LEFT INGUINAL HERNIA REPAIR 10/30/21) Gastroesophageal Reflux Musculoskeletal: No Endocrine: No HEENT: Yes (Strabismus) Glaucoma Cancer: No Psychosocial: No Integumentary: No Blood Disorders: No Adverse Reaction/Blood Tranf: No Physical Exam Vital Signs Vital Signs - First Documented 11/04/21 00:48 Temp 36.9 Pulse 86 Resp 18 B/P (MAP) 193/108 (136) Pulse Ox 99 O2 Delivery Room Air Capillary Refill : Height, Weight, BMI Height: '" Weight: lbs. oz. kg; 20.00 BMI Method: General Appearance: WD/WN, other (ANXIOUS, PACING, TALKING NON-STOP, REPEATS THINGS OVER AND OVER) Cardiovascular: no murmur, irregularly irregular Respiratory: normal breath sounds, no respiratory distress Gastrointestinal: tenderness (TO LOWER ABDOMEN), other (SURGICAL SITES ARE ALL INTACT AND APPEAR NORMAL; PT HAS BRUSING TO LEFT GROIN AND THIGH AND TO GENITAL AREA AND SCROTUM. HAS MARKED BLADDER DISTENTION TO UMBILICUS. ) Extremities: normal inspection, normal capillary refill Neurologic/Psychiatric: no motor/sensory deficits, alert, oriented x 3, other (EXTREMELY FORGETFUL, REPEATS THINGS OVER AND OVER, ASKS SAME QUESTIONS MULTIPLE TIMES. ) Skin: normal color, warm/dry, ecchymosis Focused Exam Lactate Level 11/04/21 01:18: Lactic Acid Level 1.39 Lactic Acid Level Laboratory Tests Test 11/04/21 01:18 Lactic Acid Level 1.39 MMOL/L (0.50-2.00) Progress/Results/Core Measures Suspected Sepsis SIRS Temperature: Pulse: 86 Respiratory Rate: 18 Laboratory Tests 11/04/21 01:18: White Blood Count 14.6H Blood Pressure 193 /108 Mean: 136 11/04/21 01:18: Lactic Acid Level 1.39 Laboratory Tests 11/04/21 01:18: Creatinine 0.84, Platelet Count 308, Total Bilirubin 4.6H Results/Orders Lab Results Laboratory Tests Test 11/04/21 00:48 11/04/21 01:18 Range/Units Urine Color YELLOW Urine Clarity CLOUDY Urine pH 8.0 5-9 Urine Specific [place] 1.010 L 1.016-1.022 Urine Protein TRACE H NEGATIVE Urine Glucose (UA) NEGATIVE NEGATIVE Urine Ketones 1+ H NEGATIVE Urine Nitrite NEGATIVE NEGATIVE Urine Bilirubin NEGATIVE NEGATIVE Urine Urobilinogen 2.0 < = 1.0 MG/DL Urine Leukocyte Esterase 2+ H NEGATIVE Urine RBC (Auto) 1+ H NEGATIVE Urine RBC 0-2 /HPF Urine WBC 5-10 H /HPF Urine Squamous Epithelial Cells 0-2 /HPF Urine Crystals NONE /LPF Urine Bacteria LARGE H /HPF Urine Casts NONE /LPF Urine Mucus NEGATIVE /LPF Urine Culture Indicated YES White Blood Count 14.6 H 4.3-11.0 10^3/uL Red Blood Count 4.28 L 4.30-5.52 10^6/uL Hemoglobin 13.7 13.3-17.7 g/dL Hematocrit 39 L 40-54 % Mean Corpuscular Volume 90 80-99 fL Mean Corpuscular Hemoglobin 32 25-34 pg Mean Corpuscular Hemoglobin Concent 35 32-36 g/dL Red Cell Distribution Width 11.9 10.0-14.5 % Platelet Count 308 130-400 10^3/uL Mean Platelet Volume 9.3 9.0-12.2 fL Immature Granulocyte % (Auto) 0 % Neutrophils (%) (Auto) 85 H 42-75 % Lymphocytes (%) (Auto) 4 L 12-44 % Monocytes (%) (Auto) 10 0-12 % Eosinophils (%) (Auto) 0 0-10 % Basophils (%) (Auto) 0 0-10 % Neutrophils # (Auto) 12.5 H 1.8-7.8 10^3/uL Lymphocytes # (Auto) 0.6 L 1.0-4.0 10^3/uL Monocytes # (Auto) 1.4 H 0.0-1.0 10^3/uL Eosinophils # (Auto) 0.0 0.0-0.3 10^3/uL Basophils # (Auto) 0.0 0.0-0.1 10^3/uL Immature Granulocyte # (Auto) 0.1 0.0-0.1 10^3/uL Neutrophils % (Manual) 88 % Lymphocytes % (Manual) 6 % Monocytes % (Manual) 5 % Metamyelocytes % 1 % Elliptocytes SLIGHT Erythrocyte Sedimentation Rate 18 0-30 MM/HR Sodium Level 129 L 135-145 MMOL/L Potassium Level 3.8 3.6-5.0 MMOL/L Chloride Level 93 L 98-107 MMOL/L Carbon Dioxide Level 22 21-32 MMOL/L Anion Gap 14 5-14 MMOL/L Blood Urea Nitrogen 14 7-18 MG/DL Creatinine 0.84 0.60-1.30 MG/DL Estimat Glomerular Filtration Rate 97 BUN/Creatinine Ratio 17 Glucose Level 119 H 70-105 MG/DL Lactic Acid Level 1.39 0.50-2.00 MMOL/L Calcium Level 9.4 8.5-10.1 MG/DL Corrected Calcium 9.2 8.5-10.1 MG/DL Total Bilirubin 4.6 H 0.1-1.0 MG/DL Aspartate Amino Transf (AST/SGOT) 21 5-34 U/L Alanine Aminotransferase (ALT/SGPT) 20 0-55 U/L Alkaline Phosphatase 53 40-136 U/L C-Reactive Protein High Sensitivity 7.33 H 0.00-0.50 MG/DL Total Protein 7.4 6.4-8.2 GM/DL Albumin 4.2 3.2-4.5 GM/DL Procalcitonin 0.07 <0.10 NG/ML Serum Alcohol < 10 <10 MG/DL Micro Results Microbiology 11/04/21 Blood Culture - Preliminary, Resulted No growth 11/04/21 Blood Culture - Preliminary, Resulted No growth 11/04/21 Urine Culture - Preliminary, Resulted Probable Pseudomonas My Orders Orders - KALI DASH DO Ed Iv/Invasive Line Start (11/04/21 00:55) Cbc With Automated Diff (11/04/21 00:55) Comprehensive Metabolic Panel (11/04/21 00:55) Hs C Reactive Protein (11/04/21 00:55) Lactic Acid Analyzer (11/04/21 00:55) Procalcitonin (Pct) (11/04/21 00:55) Ua Culture If Indicated (11/04/21 00:55) Erythrocyte Sedimentation Rate (11/04/21 00:55) Bladder Scan (11/04/21 01:07) Monitor-Rhythm Ecg Trace Only (11/04/21 01:07) Phenazopyridine Tablet (Pyridium Tablet) (11/04/21 01:15) Catheter(Urinary) Insert & Ass 03,15 (11/04/21 01:14) Manual Differential (11/04/21 01:18) Lidocaine 2% (Urojet) (Xylocaine Urojet) (11/04/21 02:15) Lidocaine 2% (Urojet) (Xylocaine Urojet) (11/04/21 02:14) Ct Abdomen/Pelvis Wo (11/04/21 02:47) Fentanyl Inj (Sublimaze Injection) (11/04/21 02:47) Lorazepam Tablet (Ativan Tablet) (11/04/21 02:47) Belladonna Alkaloid/Opium Supp (B & O Gray (11/04/21 03:45) Urine Culture (11/04/21 00:48) Ceftriaxone 1 Gm Pre-Mix (Rocephin 1 Gm (11/04/21 05:01) Fentanyl Inj (Sublimaze Injection) (11/04/21 05:30) Lorazepam Tablet (Ativan Tablet) (11/04/21 05:29) Morphine Injection (Morphine Injection (11/04/21 06:00) Alcohol (11/04/21 06:47) Medications Given in ED Vital Signs/I&O 11/04/21 11/04/21 00:48 09:09 Temp 36.9 36.9 Pulse 86 103 Resp 18 20 B/P (MAP) 193/108 (136) 168/106 Pulse Ox 99 98 O2 Delivery Room Air Room Air Capillary Refill : Blood Pressure Mean: 136 Progress Note : Progress Note BLADDER SCAN--> 1000 ML NURSING STAFF PLACED REGULAR GOMEZ CATHETER--CATHETER VERY EASILY PLACED, WITH RETURN OF SOME BLOOD AND LARGE CLOTS, ABLE TO IRRIGATE SOME, THEN QUIT DRAINING AND UNABLE TO IRRIGATE/CLOTTED OFF. MULTIPLE 3-WAY CATHETERS WERE THEN PLACED AND ATTEMPTED C.B.I. AND THEY ALL WORKED BRIEFLY, AND ALL QUIT DRAINING AND WOULD CLOT OFF, AND WERE REMOVED. IN/OUT STRAIGHT CATH DONE WITH RETURN OF 500 ML GROSSLY BLOODY URINE WITH CLOTS, PRIOR TO TRANSFER PT WAS GIVEN FENTANYL AND MORPHINE FOR PAIN, ATIVAN FOR ANXIETY, AND B&O SUPPOSITORY ROCEPHIN GIVEN FOR UTI NO DETERIORATION IN PT'S CONDITION DURING ER STAY PT IS REPEATEDLY REMOVES HIS MASK, DESPITE BEING REMINDED A MULTITUDE OF TIMES TO KEEP HIS MASK ON HE REPEATEDLY REFUSES TO STAY ON ER BED, WON'T STAY IN ROOM, AND IS CONSTANTLY OUT OF ROOM OR WALKING AROUND IN ROOM. WON'T KEEP MONITOR DEVICES ON, ETC TALKING NON-STOP AND REPEATING SAME THINGS AND SAME QUESTIONS MULTIPLE TIMES- POOR MEMORY. SPEECH IS CLEAR AND GAIT IS STEADY Diagnostic Imaging Comments CT ABDOMEN/PELVIS--PER [facility] VIA FAX AT 0548 -MINIMAL TO MODERATE BILATERAL HYDRONEPHROSIS AND HEMATURIA IN THE BLADDER, GOMEZ CATHETER BULB IN PROSTATIC URETHRA. -PNEUMOPERITONEUM, PROBABLY POST OPERATIVE Reviewed: Reviewed by Me Departure Communication (Admissions) 0558--SPOKE WITH DR. MCCRAY, SURGEON [employer]PERATOR [employer], HE ADVISES TRANSFER WE DO NOT HAVE ANY UROLOGIST AVAILABLE HERE AT THIS TIME. 0600--CALLED [facility]. 0604--SPOKE WITH DR. REED, UROLOGIST, HE ACCEPTS PT, WILL TAKE TO OR THIS MORNING. IMAGING CLOUDED TO [place] [id number]--SPOKE WITH DR. DESIR, HOSPITALIST, ACCEPTS PT FOR ADMIT. Impression Primary Impression: Acute urinary obstruction Additional Impressions: Gross hematuria UTI (urinary tract infection) S/P INGUINAL AND UMBILICAL HERNIA REPAIR ELIQUIS THERAPY HTN (hypertension) Disposition: 02 XFER SHT-TRM HOSP Condition: Stable Transfer Transfer Reason: Exceeds level of care (UROLOGY CARE CURRENTLY UNAVAILABLE HERE) Transfer Facility: [facility] Method of Transfer: EMS Departure-Patient Inst. Referrals: [facility] (PCP/Family) Primary Care Physician KALI DASH DO Nov 04, 2021 05:03
[2021-11-04] MEDS ORDERED: fentaNYL INJ 100 MCG/2 ML AMP IVP ONE (05:30)
[2021-11-04] MEDS ORDERED: morphine INJ 10 MG/ML 1ML (SYR OR VIAL) IVP ONE (06:00)
--- NOTE | 2021-11-04 06:44 | Diagnostic Imaging Report ---
PROCEDURE: CT abdomen and pelvis without contrast. TECHNIQUE: Multiple contiguous axial images were obtained through the abdomen and pelvis without the use of intravenous contrast. Auto Exposure Controls were utilized during the CT exam to meet ALARA standards for radiation dose reduction. Indication: Followup hematuria, urinary retention. Comparison: None. Discussion: Some atelectasis noted within the lung bases. Normal heart size. No pleural or pericardial fluid. 1.3 cm low-attenuation focus within the left hepatic lobe is indeterminate by noncontrast CT. This could represent a small cyst or hemangioma though underlying malignancy cannot be entirely excluded given lack of comparison imaging. At a minimum recommend nonemergent ultrasound to further evaluate. The remainder of the liver, gallbladder, pancreas, spleen, stomach, and adrenal glands are unremarkable. Pneumoperitoneum is present, mild. There are skin joaquin present within the left abdomen and the lower bilateral abdominal sosa. Therefore the pneumoperitoneum is likely postoperative in nature though recommend clinical correlation. Small hiatal hernia is noted. There is mild bilateral hydronephrosis present with mild hydroureter. 2 mm nonobstructing left renal calculus. The bladder is distended. There is a layering density within the dependent bladder which likely represents blood. No abnormal bladder wall thickening. There is air within the bladder which is likely due to instrumentation. Reyna catheter is present with the bulb inflated within the prosthetic urethra. There is a focal density noted within the central lumen of the rectum which is nonspecific though could potentially be seen with a suppository or an acute bleed. Recommend clinical correlation. There is gas and fluid within the left inguinal canal which again may be postoperative in nature. Fat-containing left inguinal hernia is noted. The large and small bowel loops are unremarkable. No ascites or adenopathy. The aorta is normal in caliber. No acute osseous abnormality identified. Impression: 1. Reyna catheter bulb is inflated within the prosthetic urethra. There appears to be blood within the dependent bladder. Mild bilateral hydronephrosis. The bladder is significantly distended. 2. Pneumoperitoneum. There are skin joaquin present which suggest recent intra-abdominal surgery. Recommend clinical correlation. 3. Indeterminate low-attenuation focus within the left hepatic lobe. 4. Agree with preliminary report. Dictated by: Dictated on workstation # [id number]
[2021-11-04 09:09] VITALS: BP 168/106
== END 2021-11-04 09:09 | disposition short-term general hospital (02) ==
LOC: EDUNIT# 00:28 → ER 00:31
DX: N13.30 Unspecified hydronephrosis (principal); N39.0 Urinary tract infection, site not specified; I10 Essential (primary) hypertension; I48.91 Unspecified atrial fibrillation; Z87.891 Personal history of nicotine dependence; Z79.01 Long term (current) use of anticoagulants; Z98.890 Other specified postprocedural states; Z28.310 Unvaccinated for COVID-19
CPT/HCPCS: 51702; 74176; 80053; 81000; 83605; 84145; 85007; 85027; 85652; 86141; 87040; 87077; 87088; 87186; 93041; 99285; G0480; 36415; 80320